=== PATIENT | female | born 1940 | race Caucasian/White ===

== ENCOUNTER 2019-06-27 01:44 | Inpatient (IN) | payer MEDICARE, OTHER ==
[~2019-06-27] VITALS: Ht 162.6 cm; Wt 125.6 kg
[2019-06-27] VITALS (14 sets, daily range): BP systolic 90–123; BP diastolic 48–99
[2019-06-27] MEDS ORDERED: IPRA3AMP31 IH (02:21)
[2019-06-27] MEDS ORDERED: PSYL1PAC9 PO (02:21)
[2019-06-27] MEDS ORDERED: DILT240C94 PO (02:21)
[2019-06-27] MEDS ORDERED: PANT-47 PO (02:21)
[2019-06-27] MEDS ORDERED: LACT1CAP55 PO (02:21)
[2019-06-27] MEDS ORDERED: EFF37.5XRC PO (02:21)
[2019-06-27] MEDS ORDERED: ATOR10TA87 PO (02:21)
[2019-06-27] MEDS ORDERED: MELA1TAB28 PO (02:21)
[2019-06-27] MEDS ORDERED: VANC250C12 PO (02:21)
[2019-06-27] MEDS ORDERED: normal saline 1000ml 1,000 ML IV ONE (04:04)
[2019-06-27] MEDS ORDERED: LIDOcaine 2% (20mg/ml) 5ml vial ONE (05:00)
[2019-06-27 05:04] LABS: BASOPHILS % (AUTO) 0.2 % (0-1); EOSINOPHILS % (AUTO) 0.4 % (0-6); HEMOGLOBIN 15.1 g/dl (12.0-16.0); LYMPHOCYTES # (AUTO) 0.2 X10'3 (1.1-4.8); LYMPHOCYTES % (AUTO) 2.1 % (21-51); MEAN CORPUSCULAR HEMOGLOBIN 28.6 PG (27.0-31.0); MEAN CORPUSCULAR HGB CONC 32.1 g/dL (33.0-36.5); MEAN CORPUSCULAR VOLUME 89.1 FL (78-98); MEAN PLATELET VOLUME 10.5 FL (7.4-10.4); MONOCYTES # (AUTO) 0.6 X10'3 (0-0.9); MONOCYTES % (AUTO) 6.5 % (2-12); NEUTROPHILS # (AUTO) 8.2 X10'3 (1.8-7.7); NEUTROPHILS % (AUTO) 90.8 % (42-75); PLATELET COUNT 141 X10'3 (140-440); RED BLOOD COUNT 5.27 X10'6 (4.20-5.60); RED CELL DISTRIBUTION WIDTH 17.3 % (11.5-14.5)
[2019-06-27 05:20] LABS: ALANINE AMINOTRANSFERASE 12 U/L (12-78); ALBUMIN 3.1 G/DL (3.4-5.0); ALKALINE PHOSPHATASE 94 IU/L (46-116); ANION GAP 7 (8-16); ASPARTATE AMINO TRANSFERASE 18 U/L (10-37); BILIRUBIN,TOTAL 0.6 MG/DL (0.1-1.0); BLOOD UREA NITROGEN 11 MG/DL (7-18); BUN/CREATININE RATIO 7.6 (6.6-38.0); CALCIUM 8.5 MG/DL (8.5-10.1); CHLORIDE 111 MMOL/L (99-107); CREATININE 1.44 MG/DL (0.40-0.90); GLUCOSE 115 MG/DL (70-104); LIPASE 55 U/L (73-393); POTASSIUM 4.4 MMOL/L (3.5-5.1); SODIUM 144 MMOL/L (135-145); TOTAL PROTEIN 6.3 G/DL (6.4-8.2); eGFR 35 ML/MIN
[2019-06-27] MEDS ORDERED: ondansetron/PF 4mg/2ml inj IV PRN (05:25)
[2019-06-27] MEDS ORDERED: mag hydrox/Alum hydrox/simeth 30ml oral suspension PO PRN (05:25)
[2019-06-27] MEDS ORDERED: morphine 2 MG/ML inj. syringe IV PRN ×2 (05:25)
[2019-06-27] MEDS ORDERED: acetaminophen 325mg tablet PO PRN ×2 (05:25)
[2019-06-27] MEDS ORDERED: magnesium hydroxide 30ml (MOM) UD suspension PO PRN (05:25)
--- NOTE | 2019-06-27 05:30 | NUR ---
PT HAD A LARGE FORMED SOFT BM . DR DONATO NOTIFIED OF BM
[2019-06-27] MEDS ORDERED: normal saline 1000ML IV soln IVB ONE (05:50)
--- NOTE | 2019-06-27 06:00 | NUR ---
chest x ray at bedside
[2019-06-27] MEDS: dextrose 5%-1/2 normal saline 1,000 ML IV SCH ×2 (06:03→15:24)
[2019-06-27] MEDS ORDERED: diltiazem-NS 100mg/100ml 100 ML IV SCH (06:05)
[2019-06-27] MEDS ORDERED: diltiazem-D5W 125mg/125ml 125 ML IV SCH (06:05)
[2019-06-27] MEDS ORDERED: diltiazem 5mg/ml 5ml inj. IV ONE (06:05)
[2019-06-27 06:10] LABS: PARTIAL THROMBOPLASTIN TIME 28 SECONDS (22-32)
--- NOTE | 2019-06-27 07:38 | NUR ---
NOTIFY DR DUKE THAT PT IS ON A CARDIZEM DRIP. ORDERS RECEIVED TO GIVE PT CARDIZEM 60MG PO Q 6HRS. AND ADD TELE TO THE ADMIT ORDER.
[2019-06-27] MEDS: diltiazem 30mg tablet PO SCH ×3 (07:49→19:53)
--- NOTE | 2019-06-27 08:00 | NUR ---
ORDERS PER DR RENTERIA IS TO STOP CARDIZEM DRIP AFTER GIVING THE PO CARDIZEM.
--- NOTE | 2019-06-27 09:32 | NUR ---
DR RENTERIA IN ROOM TO DISCUSS CODE STATUS DURING PT'S STAY. PT DECIDES TO BE A FULL CODE AND DR RENTERIA WILL BE CHANGING THAT.
[2019-06-27] MEDS ORDERED: Melatonin 3mg tablet PO PRN (09:40)
--- NOTE | 2019-06-27 09:40 | NUR ---
OR CALLED AND WILL BE HERE IN 10 MIN TO TRANSFER TO OR.
[2019-06-27] MEDS: lactobacillus rhamnosus 10,000 MMU CELLS/CAPSULE PO SCH ×2 (09:42→19:54)
--- NOTE | 2019-06-27 09:50 | NUR ---
PT TRANSPORTED TO OR VIA [facility] BY MS TECH.
[2019-06-27] MEDS ORDERED: LIDOcaine 1% (10mg/ml) 2ml vial ONE (10:22)
[2019-06-27] MEDS ORDERED: albuterol 2.5 MG/3 ML nebule NEB ONE ×2 (10:25→10:35)
[2019-06-27] MEDS ORDERED: albuterol 2.5 MG/3 ML nebule NEB PRN (10:25)
[2019-06-27] MEDS ORDERED: niCARDipine in NS 40mg/200ml (0.2mg/ml) IVPB IV ONE (11:22)
[2019-06-27] MEDS ORDERED: desflurane 240ml liquid inh. IH ONE (11:22)
[2019-06-27] MEDS ORDERED: fentaNYL /PF 50mcg/ml 5ml ampule ONE (11:34)
[2019-06-27] MEDS ORDERED: midazolam 2 mg/2 ml injection ONE (11:34)
[2019-06-27] MEDS ORDERED: LIDOcaine 1%/PF 5ML 10 MG/ML VIAL ONE (11:40)
[2019-06-27] MEDS ORDERED: etomidate 2mg/ml inj. ONE (11:47)
[2019-06-27] MEDS ORDERED: rocuronium 10mg/ml inj IV ONE ×2 (11:47→12:58)
[2019-06-27] MEDS: diltiazem-NS 100mg/100ml 100 ML IV SCH (11:55)
[2019-06-27] MEDS ORDERED: ceFOXitin 2 GM ADDVANTGE BAG 50 ML IV ONE (12:05)
[2019-06-27] MEDS: vancomycin 250MG/10ML UD oral solution 10ML BOTTLE PO SCH ×3 (13:00→21:00)
[2019-06-27] MEDS: ipratropium/albuterol 3ml nebule IH SCH ×3 (13:00→22:45)
[2019-06-27] MEDS ORDERED: propofol 1000mg/100ml bottle 100 ML IV SCH (13:14)
[2019-06-27] MEDS ORDERED: fentaNYL/PF 50MCG/1 ML 2ML syringe IV PRN (13:15)
[2019-06-27] MEDS ORDERED: FENTANYL-0.9 % NACL/PF 100 ML IV PRN (13:41)
[2019-06-27] MEDS ORDERED: midazolam 2 mg/2 ml injection IV ONE (13:45)
[2019-06-27] MEDS ORDERED: ipratropium/albuterol 3ml nebule NEB PRN (13:45)
--- NOTE | 2019-06-27 14:15 | NUR ---
Received from OR via , accompanied by Anesthesiologist DR URIBE and report given by Anesthesiolgist. PT IS SEDATED AND VENYILATED. DOES NOT RESPOND. VITALS STABLE. DRESSING DI. DOES NOT APPEAR TO BE IN DISCOMFORT.
[2019-06-27] MEDS: ipratropium/albuterol 3ml nebule NEB SCH ×2 (14:25→18:31)
[2019-06-27] MEDS: midazolam 100mg in NS 100ml 100 ML IV PRN (14:34)
[2019-06-27 14:55] LABS: ABG BASE EXCESS -8.4 mmol/L (-2.0-3.0); ABG HCO3 15.6 mmol/L (22.0-26.0); ABG OXYGEN SATURATION 98.7 % (95-98); ABG PCO2 (T) 28.8 mmHg (35.0-45.0); ABG PH (T) 7.352 (7.350-7.450); ABG PO2 (T) 147.8 mmHg (83-108); FCOHb 0.4 % (0.5-1.5); FMetHb 0.1 % (0.3-1.12); FO2Hb 98.2 % (94-100); PEEP 5 cm H2O; RESPIRATORY RATE 14 b/min; TIDAL VOLUME 550 mL; TOTAL HEMOGLOBIN 15.1 G/dl (12.0-16.0)
--- NOTE | 2019-06-27 14:55 | NUR ---
Report called to receiving nurse. Transferred via BED Belongings . Special Issues communicated to receiving nurse. PT REMAINS SEDATED AND ON MECH VENT. VITALS STABLE. DRESSINGS DI. NO APPARENT DISCOMFORT NOTED. IN CICU RM 2008 AT THIS TIME.
[2019-06-27] MEDS ORDERED: vancomycin/NS 1 GM ADD-VANTAGE 250 ML IV ONE (15:10)
--- NOTE | 2019-06-27 15:10 | NUR ---
Recived report from dealer account manager. VSS stable. assment ic completed.
[2019-06-27 16:16] LABS: BASOPHILS % (AUTO) 0.3 % (0-1); CLARITY,URINE TURBID (Clear); EOSINOPHILS % (AUTO) 0.1 % (0-6); GLUCOSE, URINE NEGATIVE (Neg); HEMATOCRIT 42.8 % (35.0-45.0); HEMOGLOBIN 13.8 g/dl (12.0-16.0); KETONES,URINE NEGATIVE (Neg); LEUKOCYTE ESTERASE ,URINE NEGATIVE (Neg); LYMPHOCYTES # (AUTO) 0.2 X10'3 (1.1-4.8); LYMPHOCYTES % (AUTO) 2.2 % (21-51); MEAN CORPUSCULAR HEMOGLOBIN 28.9 PG (27.0-31.0); MEAN CORPUSCULAR HGB CONC 32.1 g/dL (33.0-36.5); MEAN PLATELET VOLUME 10.7 FL (7.4-10.4); MONOCYTES # (AUTO) 0.6 X10'3 (0-0.9); MONOCYTES % (AUTO) 5.6 % (2-12); NEUTROPHILS # (AUTO) 9.3 X10'3 (1.8-7.7); NEUTROPHILS % (AUTO) 91.8 % (42-75); NITRITES, URINE NEGATIVE (Neg); OCCULT BLOOD,URINE SMALL (Neg); PH,URINE 5.5 (4.8-8.0); PLATELET COUNT 140 X10'3 (140-440); PROTEIN,URINE NEGATIVE (Neg); RED BLOOD COUNT 4.76 X10'6 (4.20-5.60); RED CELL DISTRIBUTION WIDTH 17.5 % (11.5-14.5); UROBILINOGEN,URINE 0.2 E.U/dL (0.2-1.0); WHITE BLOOD COUNT 10.1 X10'3 (4.5-11.0)
[2019-06-27 16:18] LABS: COLOR,URINE DARK YELLOW (Yellow); UA COLLECTION TYPE NON-SPECIFIED
[2019-06-27 16:23] LABS: AMORPHOUS URATES 3+; BACTERIA,URINE FEW /HPF (Neg); CAL OXALATE CRYSTALS 2+ /HPF (NEGATIVE); MUCUS STRANDS NONE SEEN /LPF (Neg); RBC,URINE NONE SEEN /HPF (0-2); SQUAMOUS EPITHELIAL CELL,UR FEW /LPF (FEW); WBC,URINE 0-4 /HPF (0-4)
[2019-06-27 16:29] LABS: ALANINE AMINOTRANSFERASE 12 U/L (12-78); ALBUMIN 2.8 G/DL (3.4-5.0); ALBUMIN/GLOBULIN RATIO 0.9 (1.1-1.5); ALKALINE PHOSPHATASE 84 IU/L (46-116); ANION GAP 12 (8-16); ASPARTATE AMINO TRANSFERASE 22 U/L (10-37); BILIRUBIN,TOTAL 1.3 MG/DL (0.1-1.0); BLOOD UREA NITROGEN 13 MG/DL (7-18); BUN/CREATININE RATIO 9.2 (6.6-38.0); CALCIUM 7.9 MG/DL (8.5-10.1); CHLORIDE 113 MMOL/L (99-107); CREATININE 1.41 MG/DL (0.40-0.90); GLUCOSE 172 MG/DL (70-104); MAGNESIUM 1.4 MG/DL (1.5-2.4); PHOSPHORUS 2.6 MG/DL (2.3-4.5); POTASSIUM 4.1 MMOL/L (3.5-5.1); SODIUM 143 MMOL/L (135-145); TOTAL CARBON DIOXIDE 17.9 MMOL/L (24-32); TOTAL PROTEIN 5.9 G/DL (6.4-8.2); eGFR 36 ML/MIN
[2019-06-27 16:46] LABS: TOTAL CELLS COUNTED 100
[2019-06-27 16:47] LABS: ANISOCYTOSIS 1+; LARGE PLATELETS FEW; PLATELET ESTIMATE NORMAL; TOXIC VACUOLATION 1+
[2019-06-27] MEDS: VANCOMYCIN 1gm/H2O 200ml PB 200 ML IV SCH (17:21)
[2019-06-27] MEDS: ceFOXitin sod/dextrose 2g/50ml 50 ML IV SCH (19:54)
[2019-06-27] MEDS: pantoprazole 40mg Tablet.DR PO SCH (19:54)
[2019-06-27] MEDS: atorvastatin 10mg tablet PO SCH (20:08)
[2019-06-28] VITALS (24 sets, daily range): BP systolic 92–127; BP diastolic 52–79
[2019-06-28] MEDS: diltiazem-NS 100mg/100ml 100 ML IV SCH (00:34)
[2019-06-28] MEDS: diltiazem 30mg tablet PO SCH ×4 (01:14→19:05)
[2019-06-28] MEDS: ceFOXitin sod/dextrose 2g/50ml 50 ML IV SCH ×4 (01:14→19:08)
[2019-06-28] MEDS: dextrose 5%-1/2 normal saline 1,000 ML IV SCH ×2 (01:24→12:19)
[2019-06-28] MEDS: ipratropium/albuterol 3ml nebule NEB SCH ×7 (02:12→22:56)
[2019-06-28 02:37] LABS: ALBUMIN 2.6 G/DL (3.4-5.0); ANION GAP 10 (8-16); BLOOD UREA NITROGEN 17 MG/DL (7-18); BUN/CREATININE RATIO 6.2 (6.6-38.0); CALCIUM 8.1 MG/DL (8.5-10.1); CHLORIDE 112 MMOL/L (99-107); CREATININE 2.75 MG/DL (0.40-0.90); GLUCOSE 157 MG/DL (70-104); POTASSIUM 4.2 MMOL/L (3.5-5.1); SODIUM 143 MMOL/L (135-145); TOTAL CARBON DIOXIDE 20.7 MMOL/L (24-32); eGFR 17 ML/MIN
[2019-06-28 02:45] LABS: BASOPHILS % (AUTO) 0.2 % (0-1); EOSINOPHILS % (AUTO) 0 % (0-6); HEMATOCRIT 44.4 % (35.0-45.0); HEMOGLOBIN 14.1 g/dl (12.0-16.0); LYMPHOCYTES # (AUTO) 0.2 X10'3 (1.1-4.8); LYMPHOCYTES % (AUTO) 2.1 % (21-51); MEAN CORPUSCULAR HEMOGLOBIN 28.5 PG (27.0-31.0); MEAN CORPUSCULAR HGB CONC 31.8 g/dL (33.0-36.5); MEAN CORPUSCULAR VOLUME 89.5 FL (78-98); MEAN PLATELET VOLUME 10.7 FL (7.4-10.4); MONOCYTES # (AUTO) 0.4 X10'3 (0-0.9); MONOCYTES % (AUTO) 3.7 % (2-12); NEUTROPHILS # (AUTO) 9.2 X10'3 (1.8-7.7); PLATELET COUNT 128 X10'3 (140-440); RED BLOOD COUNT 4.96 X10'6 (4.20-5.60); RED CELL DISTRIBUTION WIDTH 17.5 % (11.5-14.5); WHITE BLOOD COUNT 9.7 X10'3 (4.5-11.0)
[2019-06-28 03:56] LABS: ABG BASE EXCESS -8.7 mmol/L (-2.0-3.0); ABG HCO3 15.9 mmol/L (22.0-26.0); ABG OXYGEN SATURATION 91.8 % (95-98); ABG PCO2 (T) 30.7 mmHg (35.0-45.0); ABG PH (T) 7.331 (7.350-7.450); ABG PO2 (T) 61.5 mmHg (83-108); ALLEN'S TEST POSITIVE; FCOHb 0.1 % (0.5-1.5); FMetHb 0.2 % (0.3-1.12); FO2Hb 91.5 % (94-100); PATIENT TEMPERATURE 36.9; PEEP 5 cm H2O; RESPIRATORY RATE 14 b/min; TIDAL VOLUME 550 mL; TOTAL HEMOGLOBIN 14.8 G/dl (12.0-16.0)
[2019-06-28] MEDS ORDERED: midazolam 2 mg/2 ml injection ONE (04:07)
[2019-06-28] MEDS: venlafaxine XR 37.5mg cap (Q24H) PO SCH (08:00)
[2019-06-28] MEDS: psyllium seed 3.4 gm packet PO SCH (08:00)
[2019-06-28] MEDS: pantoprazole 40mg Tablet.DR PO SCH ×2 (08:00→19:04)
--- NOTE | 2019-06-28 08:30 | NUR ---
agree with charted assessment by student.
[2019-06-28] MEDS: lactobacillus rhamnosus 10,000 MMU CELLS/CAPSULE PO SCH ×2 (08:59→19:04)
[2019-06-28] MEDS: vancomycin 250MG/10ML UD oral solution 10ML BOTTLE PO SCH ×2 (08:59→13:07)
[2019-06-28 11:35] LABS: PHOS, URINE RANDOM 44.7 MG/DL
[2019-06-28] MEDS: ipratropium/albuterol 3ml nebule IH SCH (11:36)
--- NOTE | 2019-06-28 12:36 | NUR ---
Initial: Pt intubated s/p lysis of complex adhesions found to have entire intestines inside large hernia sac larger than football per MD. Alvaro GONZÁLES currently to suction w/ 115ml output from two cher drains per EMR. Surgeon not states hx obesity and current wt is pt stated at 64kg w/ BMI 24 but pt does appear somewhat larger framed. ELISA d/w RN regarding scaled wt this admit in order to determine adequate nutrition support recs. Scaled wt pending. No BM yet post-op. Will continue to monitor for nutrition support needs if prolonged intubation post-op. Recs below; to update pending scaled wt. Rec: 1. IF EN; Vital AF at 65ml/hr goal 2. IF EN; PALB Q /; daily wts 3. would benefit from opioid antagonist on opioids post-op per surgeon approval 4. upon extubation, advance diet as medically indicated to heart healthy Addendum: 06/28/19 at [address] Amended: Links added.
[2019-06-28] MEDS: heparin, porcine 5000 units/ml vial SQ SCH ×2 (13:09→19:05)
[2019-06-28] MEDS: mineral oil/petrolatum ophthal oint EACHEYE SCH ×2 (13:10→20:59)
--- NOTE | 2019-06-28 15:00 | NUR ---
dr Huntley is arawre of low urine output. Pt is slow to wake. all sedation was off from 0900.
[2019-06-28] MEDS: VANCOMYCIN 1gm/H2O 200ml PB 200 ML IV SCH (15:19)
[2019-06-28] MEDS ORDERED: glucagon, human recombinant 1mg kit SUBCUT PRN (17:40)
[2019-06-28] MEDS ORDERED: MESSAGE TO PHARMACY PO ONE (17:40)
[2019-06-28] MEDS ORDERED: dextrose 50%-water 50ml dispensing syringe IV PRN ×2 (17:40)
[2019-06-28] MEDS ORDERED: insulin Lispro (HumaLOG) vial - multi-dose SQ SCH (17:40)
[2019-06-28] MEDS: atorvastatin 10mg tablet PO SCH (19:04)
[2019-06-28] MEDS: insulin glargine (Lantus) pen - multi-dose SQ SCH (20:58)
[2019-06-28] MEDS: HYDROcodone/acetaminophen 5mg/325mg tablet PO PRN (21:30)
[2019-06-29] VITALS (29 sets, daily range): BP systolic 81–118; BP diastolic 50–77
[2019-06-29] MEDS: midazolam 100mg in NS 100ml 100 ML IV PRN (00:08)
[2019-06-29] MEDS: HYDROcodone/acetaminophen 10/325mg tab PO PRN (01:53)
[2019-06-29] MEDS: ceFOXitin sod/dextrose 2g/50ml 50 ML IV SCH ×4 (01:53→19:22)
[2019-06-29] MEDS: diltiazem 30mg tablet PO SCH ×5 (01:53→19:22)
[2019-06-29] MEDS: dextrose 5%-1/2 normal saline 1,000 ML IV SCH ×3 (02:30→17:46)
[2019-06-29] MEDS: mineral oil/petrolatum ophthal oint EACHEYE SCH ×4 (02:41→19:22)
[2019-06-29 02:43] LABS: BASOPHILS % (AUTO) 0.4 % (0-1); EOSINOPHILS % (AUTO) 0.1 % (0-6); HEMATOCRIT 39.4 % (35.0-45.0); HEMOGLOBIN 12.9 g/dl (12.0-16.0); LYMPHOCYTES # (AUTO) 0.3 X10'3 (1.1-4.8); LYMPHOCYTES % (AUTO) 2.6 % (21-51); MEAN CORPUSCULAR HEMOGLOBIN 29.2 PG (27.0-31.0); MEAN CORPUSCULAR HGB CONC 32.8 g/dL (33.0-36.5); MEAN PLATELET VOLUME 10.7 FL (7.4-10.4); NEUTROPHILS # (AUTO) 8.6 X10'3 (1.8-7.7); NEUTROPHILS % (AUTO) 86.9 % (42-75); PLATELET COUNT 122 X10'3 (140-440); RED BLOOD COUNT 4.42 X10'6 (4.20-5.60); RED CELL DISTRIBUTION WIDTH 17.1 % (11.5-14.5); WHITE BLOOD COUNT 9.9 X10'3 (4.5-11.0)
[2019-06-29 02:46] LABS: ALBUMIN 2.4 G/DL (3.4-5.0); ANION GAP 11 (8-16); BLOOD UREA NITROGEN 28 MG/DL (7-18); BUN/CREATININE RATIO 7.7 (6.6-38.0); CALCIUM 8.7 MG/DL (8.5-10.1); CHLORIDE 108 MMOL/L (99-107); CREATININE 3.64 MG/DL (0.40-0.90); GLUCOSE 163 MG/DL (70-104); POTASSIUM 3.8 MMOL/L (3.5-5.1); SODIUM 140 MMOL/L (135-145); TOTAL CARBON DIOXIDE 20.7 MMOL/L (24-32); eGFR 12 ML/MIN
[2019-06-29 03:10] LABS: MAGNESIUM 1.4 MG/DL (1.5-2.4); PHOSPHORUS 3.1 MG/DL (2.3-4.5)
[2019-06-29 03:25] LABS: PLATELET ESTIMATE DECREASED
[2019-06-29 03:27] LABS: LARGE PLATELETS MODERATE
[2019-06-29] MEDS: ipratropium/albuterol 3ml nebule NEB SCH ×6 (03:34→23:26)
[2019-06-29 04:11] LABS: ABG BASE EXCESS -7.4 mmol/L (-2.0-3.0); ABG HCO3 17.3 mmol/L (22.0-26.0); ABG OXYGEN SATURATION 93.2 % (95-98); ABG PCO2 (T) 32.1 mmHg (35.0-45.0); ABG PH (T) 7.347 (7.350-7.450); ABG PO2 (T) 65.3 mmHg (83-108); ALLEN'S TEST POSITIVE; FCOHb 0.3 % (0.5-1.5); FMetHb 0.3 % (0.3-1.12); FO2Hb 92.6 % (94-100); PATIENT TEMPERATURE 36.4; PEEP 5 cm H2O; TOTAL HEMOGLOBIN 13.4 G/dl (12.0-16.0)
[2019-06-29 06:37] LABS: HEMOGLOBIN A1C 6.3 % (4.5-6.2)
[2019-06-29] MEDS: pantoprazole 40mg Tablet.DR PO SCH (08:00)
[2019-06-29] MEDS: psyllium seed 3.4 gm packet PO SCH (08:00)
[2019-06-29] MEDS: venlafaxine XR 37.5mg cap (Q24H) PO SCH (08:00)
[2019-06-29] MEDS: vancomycin 250MG/10ML UD oral solution 10ML BOTTLE PO SCH ×5 (08:15→19:24)
[2019-06-29] MEDS: heparin, porcine 5000 units/ml vial SQ SCH ×2 (08:38→19:22)
[2019-06-29] MEDS: propofol 1000mg/100ml bottle 100 ML IV SCH (09:38)
--- NOTE | 2019-06-29 10:00 | NUR ---
[facility]: REF: [id number] LOT: [id number] EXP: 12/13/2019
[2019-06-29] MEDS ORDERED: desflurane 240ml liquid inh. IH ONE (11:57)
[2019-06-29] MEDS ORDERED: fentaNYL /PF 50mcg/ml 5ml ampule ONE (12:04)
--- NOTE | 2019-06-29 12:07 | NUR ---
patient off the unit to OR
[2019-06-29] MEDS ORDERED: rocuronium 10mg/ml inj IV ONE (12:09)
[2019-06-29] MEDS ORDERED: bacitracin 15gm ointment TP ONE (12:41)
[2019-06-29] MEDS ORDERED: ceFAZolin 1000mg inj ONE (12:46)
[2019-06-29] MEDS ORDERED: albumin (human) 25% 100 ML IV solution IV ONE (13:05)
[2019-06-29] MEDS ORDERED: furosemide 40mg/4ml inj IV ONE (13:05)
--- NOTE | 2019-06-29 13:09 | NUR ---
patient back from OR.
[2019-06-29] MEDS: VANCOMYCIN 1gm/H2O 200ml PB 200 ML IV SCH (16:11)
--- NOTE | 2019-06-29 16:45 | NUR ---
notified Dr. Huntley of patient's continued decreased urine output. after flushing granado; no new orders received.
--- NOTE | 2019-06-29 17:16 | NUR ---
TF Consult: Pt okay to start Trickle TF today per surgeon. LBM 06/25. Pt having PICC placed and may need HD per . Na 140 today. Trickle feed recs below; to adjust water flushes per shipping order clerk recs. Rec: 1. Trickle NGTF per surgeon using Vital AF at 10ml/hr goal; to provide 240ml fluid, 288kcals, 194ml free water, and 18g protein. 2. PALB Q ; daily wts 3. additional water flush per shipping order clerk recs 4. IF okay to advance EN per surgeon; Vital AF at 65ml/hr goal 5. would benefit from opioid antagonist on opioids post-op per surgeon approval 6. upon extubation, advance diet as medically indicated to heart healthy Addendum: 06/29/19 at [address] Amended: Links added.
[2019-06-29] MEDS: famotidine 20mg tablet PO SCH (19:22)
[2019-06-29] MEDS: atorvastatin 10mg tablet PO SCH (19:24)
[2019-06-29] MEDS: insulin glargine (Lantus) pen - multi-dose SQ SCH (21:00)
[2019-06-30] VITALS (24 sets, daily range): BP systolic 90–119; BP diastolic 50–70
[2019-06-30] MEDS ORDERED: albumin (Human) 5% 250ml 250 ML IV ONE ×2 (01:50→02:37)
[2019-06-30] MEDS: mineral oil/petrolatum ophthal oint EACHEYE SCH ×4 (02:00→20:10)
[2019-06-30] MEDS: ceFOXitin sod/dextrose 2g/50ml 50 ML IV SCH ×4 (02:00→20:10)
[2019-06-30] MEDS: diltiazem 30mg tablet PO SCH ×4 (02:00→20:00)
[2019-06-30 02:47] LABS: BASOPHILS # (AUTO) 0.1 X10'3 (0-0.2); BASOPHILS % (AUTO) 0.8 % (0-1); EOSINOPHILS % (AUTO) 0.1 % (0-6); HEMATOCRIT 33.7 % (35.0-45.0); LYMPHOCYTES # (AUTO) 0.2 X10'3 (1.1-4.8); LYMPHOCYTES % (AUTO) 3.1 % (21-51); MEAN CORPUSCULAR HEMOGLOBIN 29.3 PG (27.0-31.0); MEAN CORPUSCULAR HGB CONC 32.6 g/dL (33.0-36.5); MEAN PLATELET VOLUME 10.9 FL (7.4-10.4); MONOCYTES # (AUTO) 0.5 X10'3 (0-0.9); MONOCYTES % (AUTO) 7.6 % (2-12); NEUTROPHILS # (AUTO) 6.3 X10'3 (1.8-7.7); NEUTROPHILS % (AUTO) 88.4 % (42-75); PLATELET COUNT 100 X10'3 (140-440); RED BLOOD COUNT 3.75 X10'6 (4.20-5.60); RED CELL DISTRIBUTION WIDTH 17.7 % (11.5-14.5); WHITE BLOOD COUNT 7.1 X10'3 (4.5-11.0)
[2019-06-30 02:51] LABS: ALBUMIN 2.6 G/DL (3.4-5.0); ANION GAP 13 (8-16); BLOOD UREA NITROGEN 31 MG/DL (7-18); BUN/CREATININE RATIO 7.8 (6.6-38.0); CALCIUM 8.4 MG/DL (8.5-10.1); CHLORIDE 107 MMOL/L (99-107); GLUCOSE 104 MG/DL (70-104); POTASSIUM 3.5 MMOL/L (3.5-5.1); SODIUM 139 MMOL/L (135-145); eGFR 11 ML/MIN
[2019-06-30] MEDS: ipratropium/albuterol 3ml nebule NEB SCH ×6 (03:12→23:37)
[2019-06-30 03:25] LABS: ABG BASE EXCESS -8.9 mmol/L (-2.0-3.0); ABG HCO3 16.6 mmol/L (22.0-26.0); ABG OXYGEN SATURATION 93.6 % (95-98); ABG PH (T) 7.314 (7.350-7.450); ABG PO2 (T) 63.9 mmHg (83-108); ALLEN'S TEST POSITIVE; FCOHb 0.3 % (0.5-1.5); FMetHb 0.1 % (0.3-1.12); FO2Hb 93.2 % (94-100); PATIENT TEMPERATURE 36.2; PEEP 5 cm H2O; RESPIRATORY RATE 12 b/min; TIDAL VOLUME 500 mL; TOTAL HEMOGLOBIN 11.7 G/dl (12.0-16.0)
[2019-06-30] MEDS: dextrose 5%-1/2 normal saline 1,000 ML IV SCH (03:44)
[2019-06-30 03:57] LABS: TOTAL CELLS COUNTED 100
[2019-06-30 03:59] LABS: ANISOCYTOSIS 1+; LARGE PLATELETS MODERATE; PLATELET ESTIMATE DECREASED
[2019-06-30] MEDS ORDERED: vancomycin inj 1,000 MG in normal saline 250ml IV soln 250 ML IV SCH (06:21)
[2019-06-30 07:51] LABS: MAGNESIUM 1.3 MG/DL (1.5-2.4)
[2019-06-30] MEDS: lactobacillus rhamnosus 10,000 MMU CELLS/CAPSULE PO SCH (08:37)
[2019-06-30] MEDS: heparin, porcine 5000 units/ml vial SQ SCH ×2 (08:38→20:11)
[2019-06-30] MEDS: vancomycin 250MG/10ML UD oral solution 10ML BOTTLE PO SCH ×4 (08:38→20:10)
[2019-06-30] MEDS: famotidine 20mg tablet PO SCH ×2 (08:38→20:10)
[2019-06-30] MEDS: psyllium seed 3.4 gm packet PO SCH (08:38)
[2019-06-30] MEDS ORDERED: methylnaltrexone br 12mg/0.6ml inj***SubQ only SQ ONE (08:45)
[2019-06-30] MEDS: venlafaxine 37.5mg tablet PO SCH (14:06)
[2019-06-30] MEDS: normal saline 1000ml 1,000 ML IV SCH (14:10)
[2019-06-30] MEDS ORDERED: insulin regular, human U-100 3ml vial - multi-dose SQ SCH (15:10)
[2019-06-30] MEDS: vancomycin inj 750 MG in normal saline 250ml IV soln 250 ML IV SCH (15:26)
[2019-06-30] MEDS ORDERED: VANCOMYCIN LEVEL IV ONE (15:30)
--- NOTE | 2019-06-30 18:54 | NUR ---
Patient in room CICU 2008. I have received report from Merced ANDERSON, and had the opportunity to ask questions and assume patient care.
--- NOTE | 2019-06-30 20:00 | NUR ---
PT nodded head yes when asked if she was in pain. PT has PRN Bethany ordered, DIETARY AID Jeff informed d/t sedation being off, he gave the okay to give a Bethany. Will continue to monitor.
[2019-06-30] MEDS: NYSTATIN CREAM - 30GM TUBE TP SCH (20:10)
[2019-06-30] MEDS: atorvastatin 10mg tablet PO SCH (20:10)
[2019-06-30] MEDS: mineral oil/petrolatum, white cream 113gm jar TP SCH (20:11)
[2019-06-30] MEDS: HYDROcodone/acetaminophen 5mg/325mg tablet PO PRN (20:12)
[2019-06-30] MEDS: insulin glargine (Lantus) pen - multi-dose SQ SCH (21:00)
[2019-07-01] VITALS (24 sets, daily range): BP systolic 82–116; BP diastolic 48–71
[2019-07-01] MEDS: normal saline 1000ml 1,000 ML IV SCH ×2 (00:33→09:58)
[2019-07-01] MEDS: mineral oil/petrolatum ophthal oint EACHEYE SCH ×4 (02:32→21:23)
[2019-07-01] MEDS: diltiazem 30mg tablet PO SCH ×4 (02:32→20:00)
[2019-07-01] MEDS: ceFOXitin sod/dextrose 2g/50ml 50 ML IV SCH ×4 (02:32→21:22)
[2019-07-01 02:58] LABS: BASOPHILS % (AUTO) 0.2 % (0-1); EOSINOPHILS % (AUTO) 0.6 % (0-6); HEMATOCRIT 34.4 % (35.0-45.0); HEMOGLOBIN 11.3 g/dl (12.0-16.0); LYMPHOCYTES # (AUTO) 0.3 X10'3 (1.1-4.8); LYMPHOCYTES % (AUTO) 3.8 % (21-51); MEAN CORPUSCULAR HGB CONC 32.8 g/dL (33.0-36.5); MEAN CORPUSCULAR VOLUME 88.6 FL (78-98); MEAN PLATELET VOLUME 10.3 FL (7.4-10.4); MONOCYTES # (AUTO) 0.6 X10'3 (0-0.9); MONOCYTES % (AUTO) 8.1 % (2-12); NEUTROPHILS # (AUTO) 6.3 X10'3 (1.8-7.7); NEUTROPHILS % (AUTO) 87.3 % (42-75); PLATELET COUNT 105 X10'3 (140-440); RED BLOOD COUNT 3.89 X10'6 (4.20-5.60); RED CELL DISTRIBUTION WIDTH 17.6 % (11.5-14.5); WHITE BLOOD COUNT 7.2 X10'3 (4.5-11.0)
[2019-07-01] MEDS: ipratropium/albuterol 3ml nebule NEB SCH ×6 (03:07→23:26)
[2019-07-01 03:09] LABS: ALBUMIN 2.4 G/DL (3.4-5.0); ANION GAP 12 (8-16); BLOOD UREA NITROGEN 31 MG/DL (7-18); BUN/CREATININE RATIO 6.8 (6.6-38.0); CALCIUM 8.2 MG/DL (8.5-10.1); CHLORIDE 108 MMOL/L (99-107); CREATININE 4.56 MG/DL (0.40-0.90); GLUCOSE 83 MG/DL (70-104); POTASSIUM 3.4 MMOL/L (3.5-5.1); PREALBUMIN 11.7 MG/DL (19-36); SODIUM 139 MMOL/L (135-145); TOTAL CARBON DIOXIDE 19.5 MMOL/L (24-32); eGFR 9 ML/MIN
[2019-07-01 03:44] LABS: MAGNESIUM 1.2 MG/DL (1.5-2.4)
--- NOTE | 2019-07-01 03:45 | NUR ---
GABY Aguilar notified d/t PT Mag 1.2. Informed him PT's CRE is 4.56. Order received to give 2gm Mag. Will continue to monitor.
[2019-07-01 03:55] LABS: ABG BASE EXCESS -9.2 mmol/L (-2.0-3.0); ABG HCO3 15.8 mmol/L (22.0-26.0); ABG OXYGEN SATURATION 95.5 % (95-98); ABG PCO2 (T) 32.1 mmHg (35.0-45.0); ABG PH (T) 7.312 (7.350-7.450); ABG PO2 (T) 80.1 mmHg (83-108); ALLEN'S TEST POSITIVE; FCOHb 0.3 % (0.5-1.5); FMetHb 0.1 % (0.3-1.12); FO2Hb 95.1 % (94-100); PATIENT TEMPERATURE 37.2; PEEP 5 cm H2O; TOTAL HEMOGLOBIN 11.7 G/dl (12.0-16.0)
[2019-07-01] MEDS ORDERED: magnesium 2GM in 50ml NS 50 ML IV ONE (03:55)
--- NOTE | 2019-07-01 06:30 | NUR ---
Patient in room CICU 2008. I have received report from MONICA TOUSSAINT and had the opportunity to ask questions and assume patient care.
--- NOTE | 2019-07-01 06:45 | NUR ---
Problems reprioritized. Patient report given, questions answered & plan of care reviewed with Jacky ANDERSON.
[2019-07-01] MEDS: HYDROcodone/acetaminophen 10/325mg tab PO PRN (06:52)
[2019-07-01] MEDS: lactobacillus rhamnosus 10,000 MMU CELLS/CAPSULE PO SCH (08:26)
[2019-07-01] MEDS: famotidine 20mg tablet PO SCH ×2 (08:26→21:22)
[2019-07-01] MEDS: venlafaxine 37.5mg tablet PO SCH (08:26)
[2019-07-01] MEDS: vancomycin 250MG/10ML UD oral solution 10ML BOTTLE PO SCH ×4 (08:26→21:28)
[2019-07-01] MEDS: psyllium seed 3.4 gm packet PO SCH (08:27)
[2019-07-01] MEDS: NYSTATIN CREAM - 30GM TUBE TP SCH ×2 (08:28→21:23)
[2019-07-01] MEDS: mineral oil/petrolatum, white cream 113gm jar TP SCH ×2 (08:28→21:23)
[2019-07-01] MEDS: heparin, porcine 5000 units/ml vial SQ SCH ×2 (08:28→21:23)
[2019-07-01] MEDS: propofol 1000mg/100ml bottle 100 ML IV SCH (09:38)
--- NOTE | 2019-07-01 13:50 | NUR ---
dr Kyrie estrella at bedside, ok for pT, patient does not need abdominal binder. also ok to advance tube feeds, consult placed. also ok if relister is needed. patient only getting norce now, may not need.
[2019-07-01] MEDS ORDERED: amiodarone/D5 360MG/200ML BAG 200 ML IV SCH (14:55)
[2019-07-01] MEDS ORDERED: potassium Cl 20 mEq/100mL bag IV ONE (14:55)
--- NOTE | 2019-07-01 15:05 | NUR ---
TF Consult: Pt tolerating trickle TF at 10ml/hr and okay to advance as tolerated to goal per surgeon. Pt did have liquid BM today though exact volume unknown per RN; previously LBM 06/25. Pt now receiving norco last night and this AM. RD d/w RN regarding opioid antagonist which surgeon was agreeable to as long as continues to receive opioids. Pt may need HD per ingredient mixer at rounds. Updated bed scale wt 117kg up from 64kg pt stated wt and current bed scale is accurate per RN. Will monitor for TF tolerance and additional protein needs post-op. Rec: 1. NGTF per surgeon using Vital AF at 70ml/hr goal; to provide 1680ml fluid, 2016kcals, 1361ml free water, and 126g protein. Initiate at 30ml/hr since tolerating trickle TF at 10ml/hr prior and advance 20ml Q8 to goal as tolerated. 2. monitor for EN tolerance 3. PALB Q /; daily wts 4. additional water flush 150ml Q4 5. routine bowel care; would benefit from opioid antagonist on opioids post-op per surgeon approval 6. upon extubation, advance diet as medically indicated to heart healthy Addendum: 07/01/19 at [address] Amended: Links added.
[2019-07-01] MEDS: vancomycin inj 750 MG in normal saline 250ml IV soln 250 ML IV SCH (15:31)
[2019-07-01] MEDS: sodium bicarbonate (8.4%) inj. 75 MEQ in dextrose 5% water 500ml 500 ML IV SCH ×2 (15:56→21:28)
[2019-07-01] MEDS: amiodarone inj. 450 MG in dextrose 5%-water 241 ML IV SCH (17:50)
--- NOTE | 2019-07-01 18:30 | NUR ---
Patient in room CICU 2008. I have received report from Jacky ANDERSON, and had the opportunity to ask questions and assume patient care.
[2019-07-01] MEDS: insulin glargine (Lantus) pen - multi-dose SQ SCH (21:00)
[2019-07-01] MEDS: atorvastatin 10mg tablet PO SCH (21:22)
[2019-07-02] VITALS (24 sets, daily range): BP systolic 85–119; BP diastolic 42–73
[2019-07-02] MEDS: mineral oil/petrolatum ophthal oint EACHEYE SCH ×4 (02:47→21:18)
[2019-07-02] MEDS: ceFOXitin sod/dextrose 2g/50ml 50 ML IV SCH ×4 (02:47→21:20)
[2019-07-02] MEDS: amiodarone inj. 450 MG in dextrose 5%-water 241 ML IV SCH ×3 (02:47→17:55)
[2019-07-02] MEDS: ipratropium/albuterol 3ml nebule NEB SCH ×6 (03:10→22:39)
[2019-07-02 03:25] LABS: ANION GAP 11 (8-16); BLOOD UREA NITROGEN 33 MG/DL (7-18); BUN/CREATININE RATIO 6.5 (6.6-38.0); CHLORIDE 105 MMOL/L (99-107); CREATININE 5.08 MG/DL (0.40-0.90); GLUCOSE 142 MG/DL (70-104); POTASSIUM 3.4 MMOL/L (3.5-5.1); SODIUM 137 MMOL/L (135-145); TOTAL CARBON DIOXIDE 21.2 MMOL/L (24-32); eGFR 8 ML/MIN
[2019-07-02 03:29] LABS: BASOPHILS % (AUTO) 0.3 % (0-1); EOSINOPHILS # (AUTO) 0.1 X10'3 (0-0.9); EOSINOPHILS % (AUTO) 0.9 % (0-6); HEMATOCRIT 34.5 % (35.0-45.0); HEMOGLOBIN 11.3 g/dl (12.0-16.0); LYMPHOCYTES # (AUTO) 0.2 X10'3 (1.1-4.8); LYMPHOCYTES % (AUTO) 3.2 % (21-51); MEAN CORPUSCULAR HEMOGLOBIN 28.9 PG (27.0-31.0); MEAN CORPUSCULAR HGB CONC 32.7 g/dL (33.0-36.5); MEAN CORPUSCULAR VOLUME 88.4 FL (78-98); MEAN PLATELET VOLUME 10.6 FL (7.4-10.4); MONOCYTES # (AUTO) 0.6 X10'3 (0-0.9); MONOCYTES % (AUTO) 8.5 % (2-12); NEUTROPHILS # (AUTO) 5.8 X10'3 (1.8-7.7); NEUTROPHILS % (AUTO) 87.1 % (42-75); PLATELET COUNT 118 X10'3 (140-440); RED BLOOD COUNT 3.91 X10'6 (4.20-5.60); RED CELL DISTRIBUTION WIDTH 17.2 % (11.5-14.5); WHITE BLOOD COUNT 6.6 X10'3 (4.5-11.0)
[2019-07-02 04:09] LABS: NUCLEATED RED BLOOD CELLS 2 /100WBC (0-0); TOTAL CELLS COUNTED 100
[2019-07-02 04:10] LABS: ANISOCYTOSIS 1+; LARGE PLATELETS MANY; PLATELET ESTIMATE DECREASED; TOXIC GRANULATION 1+; TOXIC VACUOLATION 1+
[2019-07-02 04:29] LABS: MAGNESIUM 1.6 MG/DL (1.5-2.4); PHOSPHORUS 3.1 MG/DL (2.3-4.5)
[2019-07-02] MEDS: sodium bicarbonate (8.4%) inj. 75 MEQ in dextrose 5% water 500ml 500 ML IV SCH ×4 (04:34→23:51)
[2019-07-02 05:21] LABS: ABG BASE EXCESS -8.1 mmol/L (-2.0-3.0); ABG HCO3 17.4 mmol/L (22.0-26.0); ABG OXYGEN SATURATION 96.5 % (95-98); ABG PCO2 (T) 35.8 mmHg (35.0-45.0); ABG PH (T) 7.305 (7.350-7.450); ABG PO2 (T) 84.8 mmHg (83-108); ALLEN'S TEST POSITIVE; FCOHb 0.3 % (0.5-1.5); FMetHb 0.3 % (0.3-1.12); FO2Hb 95.9 % (94-100); PATIENT TEMPERATURE 36.8; PEEP 5 cm H2O; TOTAL HEMOGLOBIN 12.1 G/dl (12.0-16.0)
--- NOTE | 2019-07-02 06:30 | NUR ---
Patient in room CICU 2008. I have received report from MONICA Boyd and had the opportunity to ask questions and assume patient care.
--- NOTE | 2019-07-02 06:54 | NUR ---
Problems reprioritized. Patient report given, questions answered & plan of care reviewed with Kelin ANDERSON.
[2019-07-02] MEDS: vancomycin 250MG/10ML UD oral solution 10ML BOTTLE PO SCH ×3 (07:51→17:00)
[2019-07-02] MEDS: famotidine 20mg tablet PO SCH ×2 (07:51→21:19)
[2019-07-02] MEDS: heparin, porcine 5000 units/ml vial SQ SCH ×2 (07:51→21:20)
[2019-07-02] MEDS: psyllium seed 3.4 gm packet PO SCH (07:51)
[2019-07-02] MEDS: venlafaxine 37.5mg tablet PO SCH (07:51)
[2019-07-02] MEDS: lactobacillus rhamnosus 10,000 MMU CELLS/CAPSULE PO SCH (07:51)
[2019-07-02] MEDS: NYSTATIN CREAM - 30GM TUBE TP SCH ×2 (07:52→21:18)
[2019-07-02] MEDS: mineral oil/petrolatum, white cream 113gm jar TP SCH ×2 (07:52→21:19)
[2019-07-02] MEDS: diltiazem 30mg tablet PO SCH ×2 (08:00→21:19)
--- NOTE | 2019-07-02 10:45 | NUR ---
Critical care rounds: Discussed patient status in detail with multidisciplinary team. Creatinine increasing significantly, 24 hr creatinine urine clearance begun, plan for dialysis today or tomorrow and MD requests set up for temp HD catheter. Also discussed increased fatigue, increased HR and puffy extremities, requested decrease in IVF and reported CO2 serum decreasing. Free water to be stopped and bicarb to be lowered in rate. Discussed need for starting cardizem but at a lowered dose because BP has been borderline. Also reported myself and RT did not feel she was strong as yesterday on weaning parameters, no plan to extubate today.
[2019-07-02] MEDS ORDERED: fentaNYL/PF 50MCG/1 ML 2ML syringe IV ONE ×2 (10:50→12:00)
[2019-07-02] MEDS ORDERED: MIDAZolam 5mg/ml 2ml vial IV ONE ×2 (10:50)
--- NOTE | 2019-07-02 12:03 | NUR ---
Assisted MD with placing temporary dialysis catheter, procedure completed without incident. VS remained stable throughout. Will continue to monitor closely.
[2019-07-02] MEDS ORDERED: normal saline 1000ml 250 ML IV PRN (12:44)
[2019-07-02] MEDS ORDERED: albumin (human) 25% 100ml IV 100 ML IV PRN (12:45)
[2019-07-02] MEDS ORDERED: heparin 1,000 units/ml 10ml inj HE ONE ×4 (12:50→13:40)
[2019-07-02] MEDS: HYDROcodone/acetaminophen 10/325mg tab PO PRN (13:54)
--- NOTE | 2019-07-02 14:45 | NUR ---
Changed abdominal dressing and applied Rodarte straps to decrease amount of times tape is applied and reapplied. Wound clean but still secreting a lot of serous fluid.
--- NOTE | 2019-07-02 14:52 | NUR ---
F/U 07/01: MD at critical care rounds requests decrease in water flushes d/t pt being fluid positive. Recommend 100 mL water flush Q4H to meet minimum hydration needs using 1 mL/kcal. Recommendations d/w RN. Pt starting dialysis today per MD notes. Will continue to follow. TF Consult: Pt tolerating trickle TF at 10ml/hr and okay to advance as tolerated to goal per surgeon. Pt did have liquid BM today though exact volume unknown per RN; previously LBM 06/25. Pt now receiving norco last night and this AM. RD d/w RN regarding opioid antagonist which surgeon was agreeable to as long as continues to receive opioids. Pt may need HD per softball coach at rounds. Updated bed scale wt 117kg up from 64kg pt stated wt and current bed scale is accurate per RN. Will monitor for TF tolerance and additional protein needs post-op. Rec: 1. NGTF per surgeon using Vital AF at 70ml/hr goal; to provide 1680ml fluid, 2016kcals, 1361ml free water, and 126g protein. Initiate at 30ml/hr since tolerating trickle TF at 10ml/hr prior and advance 20ml Q8 to goal as tolerated. 2. monitor for EN tolerance 3. PALB Q /; daily wts 4. additional water flush 100 mL Q4H 5. routine bowel care; would benefit from opioid antagonist on opioids post-op per surgeon approval 6. upon extubation, advance diet as medically indicated to heart healthy Addendum: 07/02/19 at [address] Amended: Links added.
--- NOTE | 2019-07-02 16:15 | NUR ---
Reviewed trending down BP and trending up HR and that patient seems to be slightly more fatigued. Received orders for albumin to give during dialysis.
[2019-07-02] MEDS ORDERED: albumin (human) 25% 100 ML IV solution IV ONE (16:50)
[2019-07-02] MEDS: vancomycin inj 750 MG in normal saline 250ml IV soln 250 ML IV SCH (18:11)
--- NOTE | 2019-07-02 18:25 | NUR ---
Problems reprioritized. Patient report given, questions answered & plan of care reviewed with MONICA Navarrete.
--- NOTE | 2019-07-02 18:30 | NUR ---
Patient in room CICU 2008. I have received report from Lianet ANDERSON, and had the opportunity to ask questions and assume patient care.
[2019-07-02] MEDS: insulin glargine (Lantus) pen - multi-dose SQ SCH (21:00)
[2019-07-02] MEDS: atorvastatin 10mg tablet PO SCH (21:19)
[2019-07-03] VITALS (23 sets, daily range): BP systolic 82–107; BP diastolic 43–74
[2019-07-03] MEDS: amiodarone inj. 450 MG in dextrose 5%-water 241 ML IV SCH ×4 (00:01→22:14)
[2019-07-03] MEDS: ceFOXitin sod/dextrose 2g/50ml 50 ML IV SCH ×4 (02:30→19:29)
[2019-07-03] MEDS: mineral oil/petrolatum ophthal oint EACHEYE SCH ×4 (02:30→19:30)
[2019-07-03 02:50] LABS: BASOPHILS % (AUTO) 0.2 % (0-1); EOSINOPHILS # (AUTO) 0.1 X10'3 (0-0.9); EOSINOPHILS % (AUTO) 1.3 % (0-6); HEMATOCRIT 30.7 % (35.0-45.0); HEMOGLOBIN 10.2 g/dl (12.0-16.0); LYMPHOCYTES # (AUTO) 0.2 X10'3 (1.1-4.8); LYMPHOCYTES % (AUTO) 3.4 % (21-51); MEAN CORPUSCULAR HEMOGLOBIN 28.9 PG (27.0-31.0); MEAN CORPUSCULAR HGB CONC 33.3 g/dL (33.0-36.5); MEAN CORPUSCULAR VOLUME 86.7 FL (78-98); MEAN PLATELET VOLUME 10.1 FL (7.4-10.4); MONOCYTES # (AUTO) 0.8 X10'3 (0-0.9); MONOCYTES % (AUTO) 11.8 % (2-12); NEUTROPHILS # (AUTO) 5.9 X10'3 (1.8-7.7); NEUTROPHILS % (AUTO) 83.3 % (42-75); PLATELET COUNT 96 X10'3 (140-440); RED BLOOD COUNT 3.55 X10'6 (4.20-5.60); RED CELL DISTRIBUTION WIDTH 17.2 % (11.5-14.5)
[2019-07-03 03:14] LABS: ALANINE AMINOTRANSFERASE 7 U/L (12-78); ALBUMIN 2.3 G/DL (3.4-5.0); ALBUMIN/GLOBULIN RATIO 0.9 (1.1-1.5); ALKALINE PHOSPHATASE 62 IU/L (46-116); ANION GAP 8 (8-16); ASPARTATE AMINO TRANSFERASE 12 U/L (10-37); BILIRUBIN,TOTAL 0.6 MG/DL (0.1-1.0); BLOOD UREA NITROGEN 25 MG/DL (7-18); BUN/CREATININE RATIO 5.9 (6.6-38.0); CHLORIDE 104 MMOL/L (99-107); CREATININE 4.22 MG/DL (0.40-0.90); GLUCOSE 136 MG/DL (70-104); MAGNESIUM 1.5 MG/DL (1.5-2.4); PHOSPHORUS 1.7 MG/DL (2.3-4.5); POTASSIUM 3.5 MMOL/L (3.5-5.1); SODIUM 137 MMOL/L (135-145); TOTAL CARBON DIOXIDE 24.9 MMOL/L (24-32); TOTAL PROTEIN 4.8 G/DL (6.4-8.2); eGFR 10 ML/MIN
[2019-07-03] MEDS: ipratropium/albuterol 3ml nebule NEB SCH ×6 (03:18→23:03)
[2019-07-03 04:36] LABS: ABG BASE EXCESS -0.9 mmol/L (-2.0-3.0); ABG HCO3 23.2 mmol/L (22.0-26.0); ABG OXYGEN SATURATION 95.6 % (95-98); ABG PCO2 (T) 37.1 mmHg (35.0-45.0); ABG PH (T) 7.415 (7.350-7.450); ABG PO2 (T) 77.1 mmHg (83-108); ALLEN'S TEST POSITIVE; FCOHb 0.1 % (0.5-1.5); FMetHb 0.2 % (0.3-1.12); FO2Hb 95.3 % (94-100); PATIENT TEMPERATURE 37.4; PEEP 5 cm H2O; RESPIRATORY RATE 12 b/min; TIDAL VOLUME 500 mL; TOTAL HEMOGLOBIN 11.2 G/dl (12.0-16.0)
--- NOTE | 2019-07-03 06:15 | NUR ---
Patient in room CICU 2008. I have received report from maintenance technician 2nd shift and had the opportunity to ask questions and assume patient care.
--- NOTE | 2019-07-03 06:51 | NUR ---
Problems reprioritized. Patient report given, questions answered & plan of care reviewed with Kelin ANDERSON.
[2019-07-03] MEDS ORDERED: normal saline 1000ml 250 ML IV PRN (08:00)
[2019-07-03] MEDS ORDERED: normal saline 1000ml 100 ML IV PRN (08:00)
[2019-07-03] MEDS ORDERED: epoetin 20,000 units/ml inj IV ONE (08:00)
[2019-07-03] MEDS ORDERED: heparin 1,000 units/ml 10ml inj HE ONE ×2 (08:00)
[2019-07-03] MEDS ORDERED: albumin (human) 25% 100ml IV 100 ML IV PRN (08:00)
[2019-07-03] MEDS: heparin, porcine 5000 units/ml vial SQ SCH ×2 (08:53→19:29)
[2019-07-03] MEDS: famotidine 20mg tablet PO SCH ×2 (08:53→19:29)
[2019-07-03] MEDS: diltiazem 30mg tablet PO SCH ×2 (08:53→19:29)
[2019-07-03] MEDS: psyllium seed 3.4 gm packet PO SCH (08:53)
[2019-07-03] MEDS: venlafaxine 37.5mg tablet PO SCH (08:53)
[2019-07-03] MEDS: lactobacillus rhamnosus 10,000 MMU CELLS/CAPSULE PO SCH (08:53)
[2019-07-03] MEDS: mineral oil/petrolatum, white cream 113gm jar TP SCH ×2 (09:12→19:30)
[2019-07-03] MEDS: NYSTATIN CREAM - 30GM TUBE TP SCH ×2 (09:12→19:30)
[2019-07-03] MEDS ORDERED: VANCOMYCIN LEVEL IV ONE (15:30)
[2019-07-03] MEDS: vancomycin inj 750 MG in normal saline 250ml IV soln 250 ML IV SCH (16:35)
--- NOTE | 2019-07-03 18:09 | NUR ---
Problems reprioritized. Patient report given, questions answered & plan of care reviewed with oncoming shift.
[2019-07-03] MEDS: HYDROcodone/acetaminophen 10/325mg tab PO PRN (19:30)
[2019-07-03] MEDS: atorvastatin 10mg tablet PO SCH (19:30)
[2019-07-03] MEDS: insulin glargine (Lantus) pen - multi-dose SQ SCH (21:00)
[2019-07-03] MEDS ORDERED: magnesium 2GM in 50ml NS 50 ML IV ONE (21:50)
[2019-07-03 21:53] LABS: BASOPHILS % (AUTO) 0.2 % (0-1); EOSINOPHILS # (AUTO) 0.1 X10'3 (0-0.9); EOSINOPHILS % (AUTO) 1.1 % (0-6); HEMATOCRIT 30.6 % (35.0-45.0); HEMOGLOBIN 10.3 g/dl (12.0-16.0); LYMPHOCYTES # (AUTO) 0.3 X10'3 (1.1-4.8); LYMPHOCYTES % (AUTO) 3.4 % (21-51); MEAN CORPUSCULAR HEMOGLOBIN 29.3 PG (27.0-31.0); MEAN CORPUSCULAR HGB CONC 33.6 g/dL (33.0-36.5); MEAN CORPUSCULAR VOLUME 87.1 FL (78-98); MEAN PLATELET VOLUME 10.1 FL (7.4-10.4); MONOCYTES % (AUTO) 12.7 % (2-12); NEUTROPHILS # (AUTO) 6.5 X10'3 (1.8-7.7); NEUTROPHILS % (AUTO) 82.6 % (42-75); PLATELET COUNT 94 X10'3 (140-440); RED BLOOD COUNT 3.51 X10'6 (4.20-5.60); RED CELL DISTRIBUTION WIDTH 17.6 % (11.5-14.5); WHITE BLOOD COUNT 7.9 X10'3 (4.5-11.0)
[2019-07-03] MEDS ORDERED: potassium Cl 20mEq/100mL bag 100 ML IV PRN (21:55)
[2019-07-03] MEDS ORDERED: magnesium 2GM in 50ml NS 50 ML IV PRN (21:55)
[2019-07-03] MEDS ORDERED: potassium Cl 20 mEq SR tablet PO PRN (21:55)
[2019-07-03 22:02] LABS: ALANINE AMINOTRANSFERASE 13 U/L (12-78); ALBUMIN 2.9 G/DL (3.4-5.0); ALBUMIN/GLOBULIN RATIO 1.2 (1.1-1.5); ALKALINE PHOSPHATASE 69 IU/L (46-116); ANION GAP 7 (8-16); ASPARTATE AMINO TRANSFERASE 18 U/L (10-37); BILIRUBIN,TOTAL 0.8 MG/DL (0.1-1.0); BLOOD UREA NITROGEN 14 MG/DL (7-18); BUN/CREATININE RATIO 4.1 (6.6-38.0); CHLORIDE 103 MMOL/L (99-107); CREATININE 3.38 MG/DL (0.40-0.90); GLUCOSE 134 MG/DL (70-104); MAGNESIUM 1.5 MG/DL (1.5-2.4); POTASSIUM 3.5 MMOL/L (3.5-5.1); SODIUM 138 MMOL/L (135-145); TOTAL CARBON DIOXIDE 27.8 MMOL/L (24-32); TOTAL PROTEIN 5.4 G/DL (6.4-8.2); eGFR 13 ML/MIN
[2019-07-04] VITALS (23 sets, daily range): BP systolic 90–113; BP diastolic 52–78
[2019-07-04] MEDS: mineral oil/petrolatum ophthal oint EACHEYE SCH ×4 (02:00→20:34)
[2019-07-04] MEDS: ipratropium/albuterol 3ml nebule NEB SCH ×6 (03:12→23:05)
[2019-07-04] MEDS: ceFOXitin sod/dextrose 2g/50ml 50 ML IV SCH ×4 (03:18→20:24)
[2019-07-04 03:32] LABS: PARTIAL THROMBOPLASTIN TIME 38 SECONDS (22-32)
[2019-07-04 03:45] LABS: ABG BASE EXCESS 0.8 mmol/L (-2.0-3.0); ABG HCO3 24.9 mmol/L (22.0-26.0); ABG OXYGEN SATURATION 94.8 % (95-98); ABG PCO2 (T) 38.4 mmHg (35.0-45.0); ABG PH (T) 7.432 (7.350-7.450); ABG PO2 (T) 71.6 mmHg (83-108); ALLEN'S TEST POSITIVE; FCOHb 0.1 % (0.5-1.5); FMetHb 0.1 % (0.3-1.12); FO2Hb 94.6 % (94-100); PATIENT TEMPERATURE 37.3; PEEP 5 cm H2O; RESPIRATORY RATE 12 b/min; TIDAL VOLUME 500 mL; TOTAL HEMOGLOBIN 10.6 G/dl (12.0-16.0)
[2019-07-04 03:46] LABS: ALANINE AMINOTRANSFERASE 12 U/L (12-78); ALBUMIN 2.6 G/DL (3.4-5.0); ALKALINE PHOSPHATASE 68 IU/L (46-116); ANION GAP 4 (8-16); ASPARTATE AMINO TRANSFERASE 18 U/L (10-37); BILIRUBIN,TOTAL 0.6 MG/DL (0.1-1.0); BLOOD UREA NITROGEN 19 MG/DL (7-18); BUN/CREATININE RATIO 5.1 (6.6-38.0); CALCIUM 8.3 MG/DL (8.5-10.1); CHLORIDE 103 MMOL/L (99-107); CREATININE 3.76 MG/DL (0.40-0.90); GLUCOSE 127 MG/DL (70-104); MAGNESIUM 1.8 MG/DL (1.5-2.4); POTASSIUM 3.5 MMOL/L (3.5-5.1); SODIUM 138 MMOL/L (135-145); TOTAL CARBON DIOXIDE 30.8 MMOL/L (24-32); TOTAL PROTEIN 5.2 G/DL (6.4-8.2); eGFR 12 ML/MIN
[2019-07-04 03:48] LABS: PHOSPHORUS 1.1 MG/DL (2.3-4.5)
--- NOTE | 2019-07-04 04:42 | NUR ---
1830..Patient in room CICU 2008. I have received report from Louis ANDERSON and had the opportunity to ask questions and assume patient care.
--- NOTE | 2019-07-04 04:43 | NUR ---
1999..Assessment as noted dialysis complete, tolerated well.
--- NOTE | 2019-07-04 04:44 | NUR ---
2100..Having runs of torsades, given Mg 2gm as ordered with good effect. medicated for pain with norco with good effect. Dsg to abd changes, sutures intact.
--- NOTE | 2019-07-04 05:15 | NUR ---
0000..Resting quietly, no changes noted.
--- NOTE | 2019-07-04 05:16 | NUR ---
0400..No changes noted.
[2019-07-04] MEDS ORDERED: Neutra Phos packet PO PRN (05:25)
[2019-07-04] MEDS ORDERED: sodium phosphate inj. 30 MMOL in dextrose 5%-water 250 ML IV PRN (05:25)
[2019-07-04] MEDS ORDERED: sodium phosphate inj. 15 MMOL in dextrose 5%-water 250 ML IV PRN (05:25)
[2019-07-04] MEDS: amiodarone inj. 450 MG in dextrose 5%-water 241 ML IV SCH ×3 (06:21→20:56)
--- NOTE | 2019-07-04 06:30 | NUR ---
received patient report from Irma ANDERSON
--- NOTE | 2019-07-04 06:47 | NUR ---
0645..Problems reprioritized. Patient report given, questions answered & plan of care reviewed with Marco A ANDERSON.
[2019-07-04] MEDS: lactobacillus rhamnosus 10,000 MMU CELLS/CAPSULE PO SCH (07:59)
[2019-07-04] MEDS: diltiazem 30mg tablet PO SCH ×2 (07:59→20:24)
[2019-07-04] MEDS: famotidine 20mg tablet PO SCH ×2 (07:59→20:24)
[2019-07-04] MEDS: venlafaxine 37.5mg tablet PO SCH (07:59)
[2019-07-04] MEDS: psyllium seed 3.4 gm packet PO SCH (08:00)
[2019-07-04] MEDS: mineral oil/petrolatum, white cream 113gm jar TP SCH ×2 (08:00→20:34)
[2019-07-04] MEDS: heparin, porcine 5000 units/ml vial SQ SCH ×2 (08:03→20:25)
[2019-07-04] MEDS: NYSTATIN CREAM - 30GM TUBE TP SCH ×2 (08:04→20:26)
[2019-07-04] MEDS ORDERED: albumin (human) 25% 100ml IV 100 ML IV PRN (10:05)
[2019-07-04] MEDS ORDERED: epoetin 20,000 units/ml inj IV ONE (10:05)
[2019-07-04] MEDS ORDERED: heparin 1,000 units/ml 10ml inj HE ONE ×2 (10:05)
[2019-07-04] MEDS ORDERED: VANCOMYCIN 1,500MG inj. 1,500 MG in normal saline 500ml IV soln 500 ML IV PRN (12:30)
--- NOTE | 2019-07-04 13:00 | NUR ---
Patient has continued to have short runs of torsades despite mag being 1.5, requested from Dr. Huntley if I can keep the patients mag above 2 to help with this problem and he said that was fine. I have given 2 g mag IVP and then a 4g bag will be given for a total of 6g and redraw will be done after the last dose.
[2019-07-04 13:25] LABS: ALANINE AMINOTRANSFERASE 11 U/L (12-78); ALBUMIN 2.1 G/DL (3.4-5.0); ALBUMIN/GLOBULIN RATIO 0.8 (1.1-1.5); ALKALINE PHOSPHATASE 75 IU/L (46-116); ANION GAP 8 (8-16); ASPARTATE AMINO TRANSFERASE 21 U/L (10-37); BILIRUBIN,TOTAL 0.5 MG/DL (0.1-1.0); BLOOD UREA NITROGEN 20 MG/DL (7-18); BUN/CREATININE RATIO 5.6 (6.6-38.0); CALCIUM 7.3 MG/DL (8.5-10.1); CHLORIDE 105 MMOL/L (99-107); GLUCOSE 120 MG/DL (70-104); MAGNESIUM 1.5 MG/DL (1.5-2.4); PHOSPHORUS 2.5 MG/DL (2.3-4.5); POTASSIUM 3.1 MMOL/L (3.5-5.1); SODIUM 139 MMOL/L (135-145); TOTAL CARBON DIOXIDE 25.6 MMOL/L (24-32); TOTAL PROTEIN 4.8 G/DL (6.4-8.2); eGFR 12 ML/MIN
[2019-07-04] MEDS ORDERED: magnesium 4gm in 100ml NS 100 ML IV PRN (14:55)
[2019-07-04] MEDS ORDERED: magnesium 2GM in 50ml NS 50 ML IV PRN (14:55)
--- NOTE | 2019-07-04 15:00 | NUR ---
patients dressing on abd changed and gown changed. CDI.
[2019-07-04] MEDS: amiodarone 200mg tablet PO SCH ×2 (15:12→20:24)
[2019-07-04] MEDS ORDERED: potassium Cl 20 mEq SR tablet PO PRN ×2 (15:20)
[2019-07-04] MEDS: magnesium 4gm in 100ml NS 100 ML IV PRN (17:05)
[2019-07-04 20:00] LABS: ALBUMIN 2.4 G/DL (3.4-5.0); ANION GAP 6 (8-16); BLOOD UREA NITROGEN 27 MG/DL (7-18); BUN/CREATININE RATIO 6.2 (6.6-38.0); CALCIUM 8.4 MG/DL (8.5-10.1); CHLORIDE 101 MMOL/L (99-107); CREATININE 4.36 MG/DL (0.40-0.90); GLUCOSE 136 MG/DL (70-104); MAGNESIUM 2.6 MG/DL (1.5-2.4); PHOSPHORUS 2.3 MG/DL (2.3-4.5); POTASSIUM 3.3 MMOL/L (3.5-5.1); SODIUM 134 MMOL/L (135-145); TOTAL CARBON DIOXIDE 27.5 MMOL/L (24-32); eGFR 10 ML/MIN
[2019-07-04] MEDS: HYDROcodone/acetaminophen 10/325mg tab PO PRN (20:24)
[2019-07-04] MEDS: insulin glargine (Lantus) pen - multi-dose SQ SCH (20:43)
[2019-07-04] MEDS: atorvastatin 10mg tablet PO SCH (20:43)
[2019-07-04] MEDS: dexmedetomidin/NS 400mcg/100ml 100 ML IV SCH (21:35)
[2019-07-05] VITALS (24 sets, daily range): BP systolic 82–110; BP diastolic 45–68
[2019-07-05] MEDS: ceFOXitin sod/dextrose 2g/50ml 50 ML IV SCH ×4 (02:20→20:46)
[2019-07-05] MEDS: mineral oil/petrolatum ophthal oint EACHEYE SCH ×4 (02:20→20:49)
[2019-07-05] MEDS: VANCOMYCIN LEVEL IV SCH (02:21)
[2019-07-05] MEDS: ipratropium/albuterol 3ml nebule NEB SCH ×6 (03:12→22:56)
[2019-07-05] MEDS: HYDROcodone/acetaminophen 10/325mg tab PO PRN (03:28)
[2019-07-05] MEDS: amiodarone inj. 450 MG in dextrose 5%-water 241 ML IV SCH ×2 (03:29→11:35)
[2019-07-05 03:31] LABS: ALANINE AMINOTRANSFERASE 17 U/L (12-78); ALBUMIN/GLOBULIN RATIO 0.7 (1.1-1.5); ALKALINE PHOSPHATASE 88 IU/L (46-116); ANION GAP 11 (8-16); ASPARTATE AMINO TRANSFERASE 25 U/L (10-37); BILIRUBIN,TOTAL 0.4 MG/DL (0.1-1.0); BLOOD UREA NITROGEN 26 MG/DL (7-18); CHLORIDE 99 MMOL/L (99-107); CREATININE 8.58 MG/DL (0.40-0.90); GLUCOSE 156 MG/DL (70-104); MAGNESIUM 2.6 MG/DL (1.5-2.4); POTASSIUM 3.3 MMOL/L (3.5-5.1); PREALBUMIN 14.7 MG/DL (19-36); SODIUM 136 MMOL/L (135-145); TOTAL CARBON DIOXIDE 26.5 MMOL/L (24-32); TOTAL PROTEIN 4.9 G/DL (6.4-8.2); eGFR 4 ML/MIN
--- NOTE | 2019-07-05 03:45 | NUR ---
full bed and bath. patient did well. i premedicated for the lengthy turn. large loose brown stool, liquid pasty. when removing the pacer pads, thought i gently removed the pads, caused a skin tear to left posterior back.
[2019-07-05 03:47] LABS: BASOPHILS % (AUTO) 0.3 % (0-1); EOSINOPHILS # (AUTO) 0.2 X10'3 (0-0.9); EOSINOPHILS % (AUTO) 2.1 % (0-6); HEMOGLOBIN 10.2 g/dl (12.0-16.0); LYMPHOCYTES # (AUTO) 0.3 X10'3 (1.1-4.8); LYMPHOCYTES % (AUTO) 4.3 % (21-51); MEAN CORPUSCULAR HEMOGLOBIN 28.7 PG (27.0-31.0); MEAN CORPUSCULAR HGB CONC 32.9 g/dL (33.0-36.5); MEAN CORPUSCULAR VOLUME 87.2 FL (78-98); MEAN PLATELET VOLUME 10.4 FL (7.4-10.4); MONOCYTES # (AUTO) 1.1 X10'3 (0-0.9); MONOCYTES % (AUTO) 13.7 % (2-12); NEUTROPHILS # (AUTO) 6.3 X10'3 (1.8-7.7); NEUTROPHILS % (AUTO) 79.6 % (42-75); PLATELET COUNT 90 X10'3 (140-440); RED BLOOD COUNT 3.56 X10'6 (4.20-5.60); RED CELL DISTRIBUTION WIDTH 17.5 % (11.5-14.5); WHITE BLOOD COUNT 7.9 X10'3 (4.5-11.0)
[2019-07-05 04:26] LABS: ABG BASE EXCESS -3.3 mmol/L (-2.0-3.0); ABG HCO3 20.6 mmol/L (22.0-26.0); ABG OXYGEN SATURATION 94.6 % (95-98); ABG PCO2 (T) 33.2 mmHg (35.0-45.0); ABG PO2 (T) 71.6 mmHg (83-108); ALLEN'S TEST POSITIVE; FCOHb 0.3 % (0.5-1.5); FO2Hb 94.3 % (94-100); PATIENT TEMPERATURE 36.9; PEEP 5 cm H2O; RESPIRATORY RATE 12 b/min; TIDAL VOLUME 500 mL; TOTAL HEMOGLOBIN 11.6 G/dl (12.0-16.0)
--- NOTE | 2019-07-05 04:34 | NUR ---
PATIENT RECENTLY RECEIVED NORCO TO PREPARE FOR FULL TURN/BED AND BATH. LATGE LOOSE STOOL, AFTER FULL BATH, PATIENT APPEARED MORE COMFORTABLE HOWEVER MAP 55-57. UPDATED APRIL, BASE FILLER. PRECEDEX GTT STOPPED. WILL CONTINUE TO MONITOR. ALSO JESSICA, BASE FILLER AWARE OF BMP RESULTS.
--- NOTE | 2019-07-05 04:44 | NUR ---
SINCE PATIENT IS AN HD PATIENT AND THE FREE WATER FLUSH ORDER WAS WRITTEN PRIOR TO HD, I HAVE HELD THE FREE WATER FLUSHES THIS SHIFT.
[2019-07-05] MEDS: dexmedetomidin/NS 400mcg/100ml 100 ML IV SCH ×3 (05:10→21:50)
--- NOTE | 2019-07-05 05:45 | NUR ---
patientbp continues to be low. call to [facility], machine chocolate molder. order for albumin. venice, machine chocolate molder also aware of loose stool and hx of c-dif.
[2019-07-05] MEDS ORDERED: albumin (Human) 5% 250ml 250 ML IV ONE (05:55)
[2019-07-05] MEDS: famotidine 20mg tablet PO SCH (07:49)
[2019-07-05] MEDS: venlafaxine 37.5mg tablet PO SCH (07:50)
[2019-07-05] MEDS: lactobacillus rhamnosus 10,000 MMU CELLS/CAPSULE PO SCH (07:51)
[2019-07-05] MEDS: heparin, porcine 5000 units/ml vial SQ SCH ×2 (07:51→20:46)
[2019-07-05] MEDS: NYSTATIN CREAM - 30GM TUBE TP SCH ×2 (07:51→20:50)
[2019-07-05] MEDS: mineral oil/petrolatum, white cream 113gm jar TP SCH ×2 (07:51→20:50)
[2019-07-05] MEDS: psyllium seed 3.4 gm packet PO SCH (07:51)
[2019-07-05] MEDS: diltiazem 30mg tablet PO SCH ×2 (08:00→21:52)
[2019-07-05] MEDS: K and/or MAG REPLACEMENT MC SCH (08:00)
[2019-07-05 08:56] LABS: ALBUMIN 1.9 G/DL (3.4-5.0); ANION GAP 11 (8-16); BLOOD UREA NITROGEN 29 MG/DL (7-18); CALCIUM 7.7 MG/DL (8.5-10.1); CHLORIDE 99 MMOL/L (99-107); CREATININE 9.82 MG/DL (0.40-0.90); GLUCOSE 156 MG/DL (70-104); PHOSPHORUS 2.5 MG/DL (2.3-4.5); POTASSIUM 3.5 MMOL/L (3.5-5.1); SODIUM 135 MMOL/L (135-145); TOTAL CARBON DIOXIDE 25.3 MMOL/L (24-32); eGFR 4 ML/MIN
[2019-07-05] MEDS: amiodarone 200mg tablet PO SCH (09:22)
--- NOTE | 2019-07-05 11:48 | NUR ---
Reassessment: Pt tolerating NGTF at goal meeting needs. LBM 07/03. Possibly needs HD today per MD w/ creatinine increasing. Pt has open abdominal fascia post-op and may require return to OR for closure pending surgeon input per MD. Will continue to monitor for additional protein needs and EN tolerance post-op. Rec: 1. NGTF per surgeon using Vital AF at 70ml/hr goal; to provide 1680ml fluid, 2016kcals, 1361ml free water, and 126g protein. Initiate at 30ml/hr since tolerating trickle TF at 10ml/hr prior and advance 20ml Q8 to goal as tolerated. 2. monitor for EN tolerance 3. PALB Q /; daily wts 4. additional water flush 100 mL Q4H 5. routine bowel care 6. upon extubation, advance diet as medically indicated to heart healthy Addendum: 07/05/19 at [address] Amended: Links added.
[2019-07-05] MEDS ORDERED: normal saline 1000ml 250 ML IV PRN (12:35)
[2019-07-05] MEDS ORDERED: epoetin 20,000 units/ml inj IV ONE (12:35)
[2019-07-05] MEDS ORDERED: albumin (human) 25% 100ml IV 100 ML IV PRN (12:35)
[2019-07-05] MEDS ORDERED: heparin 1,000 units/ml 10ml inj HE ONE ×2 (12:40)
[2019-07-05] MEDS ORDERED: acetaminophen 325mg/10.15ml oral unit dose solution OGT PRN (15:25)
[2019-07-05] MEDS ORDERED: acetaminophen 325mg/10.15ml oral unit dose solution NG PRN ×2 (15:26→15:29)
[2019-07-05] MEDS ORDERED: magnesium hydroxide 30ml (MOM) UD suspension NG PRN (15:26)
[2019-07-05] MEDS ORDERED: POTASSIUM BICARB 20meq eff tab 20 MEQ TABLET.EFF NG PRN ×2 (15:28→15:29)
[2019-07-05] MEDS: HYDROcodone/acetaminophen 5mg/325mg tablet PO PRN (20:45)
[2019-07-05] MEDS: amiodarone 200mg tablet NG SCH (20:46)
[2019-07-05] MEDS: famotidine 20mg tablet NG SCH (20:47)
[2019-07-05] MEDS: lactobacillus rhamnosus 10,000 MMU CELLS/CAPSULE NG SCH (20:47)
[2019-07-05] MEDS: atorvastatin 10mg tablet NG SCH (20:47)
[2019-07-05] MEDS: insulin glargine (Lantus) pen - multi-dose SQ SCH (20:48)
[2019-07-06] VITALS (24 sets, daily range): BP systolic 87–124; BP diastolic 47–77
[2019-07-06] MEDS: HYDROcodone/acetaminophen 10/325mg tab PO PRN (01:15)
--- NOTE | 2019-07-06 01:15 | NUR ---
norco was given for pre-medication for dressing change. [employer]ch was down 00:00 to 03:45. documented in emar late entry
[2019-07-06] MEDS: mineral oil/petrolatum ophthal oint EACHEYE SCH ×4 (02:00→18:46)
[2019-07-06] MEDS: ceFOXitin sod/dextrose 2g/50ml 50 ML IV SCH ×4 (02:00→19:50)
[2019-07-06] MEDS: ipratropium/albuterol 3ml nebule NEB SCH ×6 (03:00→23:07)
[2019-07-06] MEDS: VANCOMYCIN LEVEL IV SCH (03:00)
[2019-07-06 03:53] LABS: BASOPHILS % (AUTO) 0.5 % (0-1); EOSINOPHILS # (AUTO) 0.1 X10'3 (0-0.9); EOSINOPHILS % (AUTO) 1.6 % (0-6); HEMATOCRIT 30.4 % (35.0-45.0); HEMOGLOBIN 10.2 g/dl (12.0-16.0); LYMPHOCYTES # (AUTO) 0.3 X10'3 (1.1-4.8); LYMPHOCYTES % (AUTO) 3.2 % (21-51); MEAN CORPUSCULAR HEMOGLOBIN 29.5 PG (27.0-31.0); MEAN CORPUSCULAR HGB CONC 33.4 g/dL (33.0-36.5); MEAN CORPUSCULAR VOLUME 88.2 FL (78-98); MONOCYTES # (AUTO) 1.2 X10'3 (0-0.9); MONOCYTES % (AUTO) 13.3 % (2-12); NEUTROPHILS # (AUTO) 7.2 X10'3 (1.8-7.7); NEUTROPHILS % (AUTO) 81.4 % (42-75); PLATELET COUNT 103 X10'3 (140-440); RED BLOOD COUNT 3.44 X10'6 (4.20-5.60); RED CELL DISTRIBUTION WIDTH 17.3 % (11.5-14.5); WHITE BLOOD COUNT 8.8 X10'3 (4.5-11.0)
[2019-07-06 04:00] LABS: LARGE PLATELETS FEW; PLATELET ESTIMATE DECREASED
[2019-07-06] MEDS: dexmedetomidin/NS 400mcg/100ml 100 ML IV SCH ×3 (04:02→20:57)
--- NOTE | 2019-07-06 04:05 | NUR ---
abdominal dressing changed. surgical sutures intact, wound well approximated. Leaks sero/sanguanous from lower portion. painted with betadine. new 4x4's down suture line and padded well at lower aspect. Silk tape was used previously however this silk tape causing skin tears. i have used paper tape with this dressing change. pre-medicated prior to dressing change. [facility] 02:00 [facility] so this is a late entry.
[2019-07-06 04:23] LABS: ALANINE AMINOTRANSFERASE 24 U/L (12-78); ALBUMIN/GLOBULIN RATIO 0.6 (1.1-1.5); ALKALINE PHOSPHATASE 105 IU/L (46-116); ANION GAP 5 (8-16); ASPARTATE AMINO TRANSFERASE 31 U/L (10-37); BILIRUBIN,TOTAL 0.4 MG/DL (0.1-1.0); BLOOD UREA NITROGEN 21 MG/DL (7-18); CHLORIDE 101 MMOL/L (99-107); CREATININE 4.16 MG/DL (0.40-0.90); GLUCOSE 129 MG/DL (70-104); MAGNESIUM 2.1 MG/DL (1.5-2.4); POTASSIUM 3.9 MMOL/L (3.5-5.1); SODIUM 135 MMOL/L (135-145); TOTAL CARBON DIOXIDE 29.1 MMOL/L (24-32); TOTAL PROTEIN 5.2 G/DL (6.4-8.2); VANCOMYCIN,RANDOM 19.1 UG/ML; eGFR 10 ML/MIN
[2019-07-06 04:25] LABS: PHOSPHORUS 1.9 MG/DL (2.3-4.5)
[2019-07-06 04:55] LABS: ABG BASE EXCESS 2.4 mmol/L (-2.0-3.0); ABG HCO3 26.5 mmol/L (22.0-26.0); ABG OXYGEN SATURATION 94.1 % (95-98); ABG PCO2 (T) 39.3 mmHg (35.0-45.0); ABG PH (T) 7.447 (7.350-7.450); ABG PO2 (T) 68.9 mmHg (83-108); ALLEN'S TEST POSITIVE; FCOHb 0.1 % (0.5-1.5); FMetHb 0.1 % (0.3-1.12); FO2Hb 93.9 % (94-100); PEEP 5 cm H2O; RESPIRATORY RATE 12 b/min; TIDAL VOLUME 500 mL; TOTAL HEMOGLOBIN 10.9 G/dl (12.0-16.0)
[2019-07-06 06:09] LABS: HBSAG SCREEN Negative (Negative)
[2019-07-06] MEDS: heparin, porcine 5000 units/ml vial SQ SCH ×2 (07:50→20:00)
[2019-07-06] MEDS: NYSTATIN CREAM - 30GM TUBE TP SCH ×2 (07:50→20:19)
[2019-07-06] MEDS: mineral oil/petrolatum, white cream 113gm jar TP SCH ×2 (07:50→20:19)
[2019-07-06] MEDS: lactobacillus rhamnosus 10,000 MMU CELLS/CAPSULE NG SCH ×2 (07:51→19:49)
[2019-07-06] MEDS: famotidine 20mg tablet NG SCH ×2 (07:51→19:49)
[2019-07-06] MEDS: venlafaxine 37.5mg tablet NG SCH (07:52)
[2019-07-06] MEDS: amiodarone 200mg tablet NG SCH ×2 (07:52→19:49)
[2019-07-06] MEDS: psyllium seed 3.4 gm packet NG SCH (07:52)
[2019-07-06] MEDS: K and/or MAG REPLACEMENT MC SCH (08:00)
[2019-07-06] MEDS: diltiazem 30mg tablet PO SCH ×2 (11:17→19:49)
[2019-07-06] MEDS: HYDROcodone/acetaminophen 5mg/325mg tablet PO PRN (20:19)
[2019-07-06] MEDS: insulin glargine (Lantus) pen - multi-dose SQ SCH (20:57)
[2019-07-06] MEDS: atorvastatin 10mg tablet NG SCH (21:31)
[2019-07-07] VITALS (24 sets, daily range): BP systolic 93–133; BP diastolic 42–79
[2019-07-07] MEDS: mineral oil/petrolatum ophthal oint EACHEYE SCH ×4 (01:11→14:32)
[2019-07-07] MEDS: VANCOMYCIN LEVEL IV SCH (02:01)
[2019-07-07] MEDS: ceFOXitin sod/dextrose 2g/50ml 50 ML IV SCH ×4 (02:01→21:13)
[2019-07-07] MEDS: ipratropium/albuterol 3ml nebule NEB SCH ×6 (03:07→23:47)
[2019-07-07] MEDS: HYDROcodone/acetaminophen 5mg/325mg tablet PO PRN ×2 (03:57→21:13)
[2019-07-07 05:07] LABS: BASOPHILS % (AUTO) 0.3 % (0-1); EOSINOPHILS # (AUTO) 0.2 X10'3 (0-0.9); HEMATOCRIT 31.1 % (35.0-45.0); HEMOGLOBIN 10.2 g/dl (12.0-16.0); LYMPHOCYTES # (AUTO) 0.3 X10'3 (1.1-4.8); LYMPHOCYTES % (AUTO) 2.8 % (21-51); MEAN CORPUSCULAR HGB CONC 32.8 g/dL (33.0-36.5); MEAN CORPUSCULAR VOLUME 88.2 FL (78-98); MEAN PLATELET VOLUME 10.4 FL (7.4-10.4); MONOCYTES # (AUTO) 1.1 X10'3 (0-0.9); MONOCYTES % (AUTO) 11.7 % (2-12); NEUTROPHILS # (AUTO) 7.6 X10'3 (1.8-7.7); NEUTROPHILS % (AUTO) 83.2 % (42-75); PLATELET COUNT 107 X10'3 (140-440); RED BLOOD COUNT 3.53 X10'6 (4.20-5.60); RED CELL DISTRIBUTION WIDTH 18.4 % (11.5-14.5); WHITE BLOOD COUNT 9.2 X10'3 (4.5-11.0)
[2019-07-07 05:29] LABS: ALANINE AMINOTRANSFERASE 24 U/L (12-78); ALBUMIN/GLOBULIN RATIO 0.6 (1.1-1.5); ALKALINE PHOSPHATASE 120 IU/L (46-116); ANION GAP 8 (8-16); ASPARTATE AMINO TRANSFERASE 25 U/L (10-37); BILIRUBIN,TOTAL 0.3 MG/DL (0.1-1.0); BLOOD UREA NITROGEN 31 MG/DL (7-18); BUN/CREATININE RATIO 5.3 (6.6-38.0); CALCIUM 8.8 MG/DL (8.5-10.1); CHLORIDE 99 MMOL/L (99-107); CREATININE 5.81 MG/DL (0.40-0.90); GLUCOSE 120 MG/DL (70-104); MAGNESIUM 2.2 MG/DL (1.5-2.4); PHOSPHORUS 2.1 MG/DL (2.3-4.5); POTASSIUM 4.5 MMOL/L (3.5-5.1); SODIUM 134 MMOL/L (135-145); TOTAL PROTEIN 5.5 G/DL (6.4-8.2); VANCOMYCIN,RANDOM 17.7 UG/ML; eGFR 7 ML/MIN
--- NOTE | 2019-07-07 07:00 | NUR ---
patient failed swallow study by speech therapist
[2019-07-07] MEDS: dexmedetomidin/NS 400mcg/100ml 100 ML IV SCH ×3 (07:10→23:46)
[2019-07-07] MEDS: diltiazem 30mg tablet PO SCH ×2 (07:17→21:13)
[2019-07-07] MEDS: NYSTATIN CREAM - 30GM TUBE TP SCH ×2 (07:26→20:00)
[2019-07-07] MEDS: psyllium seed 3.4 gm packet NG SCH (07:26)
[2019-07-07] MEDS: mineral oil/petrolatum, white cream 113gm jar TP SCH ×2 (07:26→21:13)
[2019-07-07] MEDS: famotidine 20mg tablet NG SCH ×2 (07:26→21:13)
[2019-07-07] MEDS: heparin, porcine 5000 units/ml vial SQ SCH ×2 (07:26→20:00)
[2019-07-07] MEDS: lactobacillus rhamnosus 10,000 MMU CELLS/CAPSULE NG SCH ×2 (07:26→21:19)
[2019-07-07] MEDS: amiodarone 200mg tablet NG SCH ×2 (07:26→21:14)
[2019-07-07] MEDS: K and/or MAG REPLACEMENT MC SCH (07:40)
[2019-07-07] MEDS ORDERED: normal saline 1000ml 250 ML IV PRN (08:00)
[2019-07-07] MEDS ORDERED: heparin 1,000 units/ml 10ml inj HE ONE ×2 (08:00)
[2019-07-07] MEDS ORDERED: albumin (human) 25% 100ml IV 100 ML IV PRN (08:00)
[2019-07-07] MEDS ORDERED: heparin 1,000unit/ml 10ml vial 10 ML IV ONE (08:00)
[2019-07-07] MEDS ORDERED: epoetin 20,000 units/ml inj IV ONE (08:00)
[2019-07-07] MEDS: venlafaxine 37.5mg tablet NG SCH (08:25)
[2019-07-07 09:04] LABS: PLATELET ESTIMATE DECREASED; TOTAL CELLS COUNTED 100
[2019-07-07 09:05] LABS: POLYCHROMASIA FEW; SCHISTOCYTES FEW
[2019-07-07 09:06] LABS: LARGE PLATELETS FEW
--- NOTE | 2019-07-07 10:09 | NUR ---
Updated POC with Dr. Huntley, made him aware of failed swallow study, patient still has NG tube in and is receiving tube feeding at goal. Dialysis is at the bedside and dialysis is running to address creatinine of 5.8. Patient wakes up and is alert when spoken to but, falls right back asleep. Dr. Huntley would like PT to evaluate.
--- NOTE | 2019-07-07 10:44 | NUR ---
Reassessment: Pt extubated NG remains receiving EN and tolerating at goal. ELISA d/w RN regarding holding water flushes per simulation specialist approval given Na 134 today and pt on HD. LBM 07/03. Will continue to monitor. Rec: 1. NGTF per surgeon using Vital AF at 70ml/hr goal; to provide 1680ml fluid, 2016kcals, 1361ml free water, and 126g protein. Initiate at 30ml/hr since tolerating trickle TF at 10ml/hr prior and advance 20ml Q8 to goal as tolerated. 2. PALB Q /; daily wts 3. additional water flush per simulation specialist on HD 4. routine bowel care 5. advance diet as medically indicated to heart healthy Addendum: 07/07/19 at [address] Amended: Links added.
--- NOTE | 2019-07-07 18:24 | NUR ---
gave report to oncoming RN
[2019-07-07] MEDS: insulin glargine (Lantus) pen - multi-dose SQ SCH (21:00)
[2019-07-07] MEDS: atorvastatin 10mg tablet NG SCH (21:13)
[2019-07-08] VITALS (23 sets, daily range): BP systolic 88–135; BP diastolic 51–88
[2019-07-08] MEDS: VANCOMYCIN LEVEL IV SCH (00:49)
[2019-07-08] MEDS: mineral oil/petrolatum ophthal oint EACHEYE SCH ×2 (01:51→07:48)
[2019-07-08] MEDS: ceFOXitin sod/dextrose 2g/50ml 50 ML IV SCH ×4 (01:52→20:11)
[2019-07-08 02:48] LABS: BASOPHILS % (AUTO) 0.3 % (0-1); EOSINOPHILS # (AUTO) 0.2 X10'3 (0-0.9); EOSINOPHILS % (AUTO) 1.6 % (0-6); HEMATOCRIT 30.9 % (35.0-45.0); HEMOGLOBIN 9.8 g/dl (12.0-16.0); LYMPHOCYTES # (AUTO) 0.3 X10'3 (1.1-4.8); LYMPHOCYTES % (AUTO) 2.4 % (21-51); MEAN CORPUSCULAR HEMOGLOBIN 28.7 PG (27.0-31.0); MEAN CORPUSCULAR HGB CONC 31.8 g/dL (33.0-36.5); MEAN CORPUSCULAR VOLUME 90.2 FL (78-98); MEAN PLATELET VOLUME 11.1 FL (7.4-10.4); MONOCYTES # (AUTO) 1.4 X10'3 (0-0.9); MONOCYTES % (AUTO) 12.1 % (2-12); NEUTROPHILS # (AUTO) 9.7 X10'3 (1.8-7.7); NEUTROPHILS % (AUTO) 83.6 % (42-75); PLATELET COUNT 123 X10'3 (140-440); RED BLOOD COUNT 3.43 X10'6 (4.20-5.60); RED CELL DISTRIBUTION WIDTH 17.8 % (11.5-14.5); WHITE BLOOD COUNT 11.5 X10'3 (4.5-11.0)
[2019-07-08 03:04] LABS: ALANINE AMINOTRANSFERASE 19 U/L (12-78); ALBUMIN 1.8 G/DL (3.4-5.0); ALBUMIN/GLOBULIN RATIO 0.5 (1.1-1.5); ALKALINE PHOSPHATASE 121 IU/L (46-116); ANION GAP 7 (8-16); ASPARTATE AMINO TRANSFERASE 25 U/L (10-37); BILIRUBIN,TOTAL 0.3 MG/DL (0.1-1.0); BLOOD UREA NITROGEN 24 MG/DL (7-18); BUN/CREATININE RATIO 4.8 (6.6-38.0); CALCIUM 8.7 MG/DL (8.5-10.1); CHLORIDE 100 MMOL/L (99-107); CREATININE 4.97 MG/DL (0.40-0.90); GLUCOSE 126 MG/DL (70-104); PHOSPHORUS 1.8 MG/DL (2.3-4.5); POTASSIUM 4.1 MMOL/L (3.5-5.1); PREALBUMIN 17.1 MG/DL (19-36); SODIUM 136 MMOL/L (135-145); TOTAL CARBON DIOXIDE 28.7 MMOL/L (24-32); TOTAL PROTEIN 5.5 G/DL (6.4-8.2); eGFR 8 ML/MIN
[2019-07-08 03:29] LABS: PLATELET ESTIMATE DECREASED
[2019-07-08 03:32] LABS: LARGE PLATELETS MANY
[2019-07-08] MEDS: ipratropium/albuterol 3ml nebule NEB SCH ×6 (04:03→23:11)
--- NOTE | 2019-07-08 06:43 | NUR ---
Patient in room CICU 2008. I have received report from Reina ANDERSON and had the opportunity to ask questions and assume patient care.
[2019-07-08] MEDS: famotidine 20mg tablet NG SCH ×2 (07:46→20:12)
[2019-07-08] MEDS: diltiazem 30mg tablet PO SCH ×2 (07:46→20:12)
[2019-07-08] MEDS: venlafaxine 37.5mg tablet NG SCH (07:46)
[2019-07-08] MEDS: lactobacillus rhamnosus 10,000 MMU CELLS/CAPSULE NG SCH ×2 (07:46→20:12)
[2019-07-08] MEDS: amiodarone 200mg tablet NG SCH ×2 (07:46→20:12)
[2019-07-08] MEDS: psyllium seed 3.4 gm packet NG SCH (07:48)
[2019-07-08] MEDS: heparin, porcine 5000 units/ml vial SQ SCH ×2 (07:48→20:12)
[2019-07-08] MEDS ORDERED: albumin (human) 25% 100ml IV 100 ML IV PRN (08:00)
[2019-07-08] MEDS ORDERED: epoetin 20,000 units/ml inj IV ONE (08:00)
[2019-07-08] MEDS ORDERED: heparin 1,000 units/ml 10ml inj HE ONE ×2 (08:00)
[2019-07-08] MEDS ORDERED: heparin 1,000 units/ml 10ml inj IV ONE (08:00)
[2019-07-08] MEDS ORDERED: normal saline 1000ml 250 ML IV PRN (08:00)
[2019-07-08] MEDS: NYSTATIN CREAM - 30GM TUBE TP SCH ×2 (08:10→20:13)
[2019-07-08] MEDS: dexmedetomidin/NS 400mcg/100ml 100 ML IV SCH ×2 (08:10→16:30)
[2019-07-08] MEDS: mineral oil/petrolatum, white cream 113gm jar TP SCH ×2 (08:10→20:13)
--- NOTE | 2019-07-08 19:02 | NUR ---
Patient report given, questions answered & plan of care reviewed with Olga ANDERSON.
[2019-07-08] MEDS: atorvastatin 10mg tablet NG SCH (20:12)
[2019-07-08] MEDS: insulin glargine (Lantus) pen - multi-dose SQ SCH (21:00)
[2019-07-09] VITALS (23 sets, daily range): BP systolic 94–155; BP diastolic 50–92
[2019-07-09] MEDS: dexmedetomidin/NS 400mcg/100ml 100 ML IV SCH ×3 (00:50→16:07)
[2019-07-09] MEDS: ceFOXitin sod/dextrose 2g/50ml 50 ML IV SCH ×4 (02:30→20:20)
[2019-07-09] MEDS: VANCOMYCIN LEVEL IV SCH (03:00)
[2019-07-09] MEDS: ipratropium/albuterol 3ml nebule NEB SCH ×6 (03:00→23:33)
[2019-07-09 03:02] LABS: BASOPHILS # (AUTO) 0.1 X10'3 (0-0.2); BASOPHILS % (AUTO) 0.4 % (0-1); EOSINOPHILS # (AUTO) 0.2 X10'3 (0-0.9); EOSINOPHILS % (AUTO) 1.2 % (0-6); HEMATOCRIT 30.1 % (35.0-45.0); HEMOGLOBIN 9.8 g/dl (12.0-16.0); LYMPHOCYTES # (AUTO) 0.4 X10'3 (1.1-4.8); LYMPHOCYTES % (AUTO) 2.6 % (21-51); MEAN CORPUSCULAR HGB CONC 32.4 g/dL (33.0-36.5); MEAN CORPUSCULAR VOLUME 89.4 FL (78-98); MONOCYTES # (AUTO) 1.4 X10'3 (0-0.9); MONOCYTES % (AUTO) 9.8 % (2-12); NEUTROPHILS # (AUTO) 12.2 X10'3 (1.8-7.7); PLATELET COUNT 131 X10'3 (140-440); RED BLOOD COUNT 3.37 X10'6 (4.20-5.60); RED CELL DISTRIBUTION WIDTH 18.1 % (11.5-14.5); WHITE BLOOD COUNT 14.2 X10'3 (4.5-11.0)
[2019-07-09 03:19] LABS: ALANINE AMINOTRANSFERASE 23 U/L (12-78); ALBUMIN 1.7 G/DL (3.4-5.0); ALBUMIN/GLOBULIN RATIO 0.4 (1.1-1.5); ALKALINE PHOSPHATASE 131 IU/L (46-116); ANION GAP 6 (8-16); ASPARTATE AMINO TRANSFERASE 25 U/L (10-37); BILIRUBIN,TOTAL 0.3 MG/DL (0.1-1.0); BLOOD UREA NITROGEN 23 MG/DL (7-18); CALCIUM 8.8 MG/DL (8.5-10.1); CHLORIDE 101 MMOL/L (99-107); CREATININE 4.59 MG/DL (0.40-0.90); GLUCOSE 131 MG/DL (70-104); MAGNESIUM 1.9 MG/DL (1.5-2.4); PHOSPHORUS 1.5 MG/DL (2.3-4.5); SODIUM 137 MMOL/L (135-145); TOTAL CARBON DIOXIDE 30.4 MMOL/L (24-32); TOTAL PROTEIN 5.6 G/DL (6.4-8.2); VANCOMYCIN,RANDOM 11.9 UG/ML; eGFR 9 ML/MIN
[2019-07-09 03:48] LABS: ANISOCYTOSIS 2+; LARGE PLATELETS MODERATE; MICROCYTOSIS 1+; PLATELET ESTIMATE DECREASED; STOMATOCYTES 1+
--- NOTE | 2019-07-09 06:41 | NUR ---
Problems reprioritized. Patient report given, questions answered & plan of care reviewed with Mukesh ANDERSON.
[2019-07-09] MEDS ORDERED: epiNEPHrine 0.1mg/ml 10ml syringe ONE (08:00)
[2019-07-09] MEDS: amiodarone 200mg tablet NG SCH ×2 (08:20→20:20)
[2019-07-09] MEDS: famotidine 20mg tablet NG SCH ×2 (08:20→20:20)
[2019-07-09] MEDS: diltiazem 30mg tablet PO SCH ×2 (08:20→20:20)
[2019-07-09] MEDS: lactobacillus rhamnosus 10,000 MMU CELLS/CAPSULE NG SCH ×2 (08:21→20:20)
[2019-07-09] MEDS: NYSTATIN CREAM - 30GM TUBE TP SCH ×2 (08:21→20:21)
[2019-07-09] MEDS: heparin, porcine 5000 units/ml vial SQ SCH ×2 (08:21→20:21)
[2019-07-09] MEDS: mineral oil/petrolatum, white cream 113gm jar TP SCH ×2 (08:21→20:21)
[2019-07-09] MEDS: psyllium seed 3.4 gm packet NG SCH (08:21)
--- NOTE | 2019-07-09 11:06 | NUR ---
PT HAVING INCONTINENT STOOLS THAT ARE MUCUSY, FOUL ODOR AND LOOSE. CDIFF FORM FILLED OUT. MESSAGE LEFT FOR BRET MOHAN RN. DR. ROLAND JUSTINED THE ORDER FOR CDIFF CULTURE. SPECIMEN SENT.
--- NOTE | 2019-07-09 15:01 | NUR ---
Reassessment: Pt receiving EN and tolerating at goal. Receiving TF d/t unable to pass swallow eval, BSS reassessment done this morning by , reporting that due to patient's cognitive level is holding food in mouth and not moving to bolus and refuses food or liquid. Per Physical assessment patient is confused and pulling at lines. Documented with moderate liquid stools, is receiving Metamucil. Per MD note patient has fluid overload and pleural effusions Rec: 1. Continue NG tube feeding using Vital AF at 70ml/hr goal; to provide 1680ml fluid, 2016kcals, 1361ml free water, and 126g protein. 2. PALB q /; daily wts 3. additional water flush 150 q 4, sodium WNL 4. routine bowel care 5. when passes swallow eval, advance diet as medically indicated to heart healthy per recs Addendum: 07/09/19 at [address] Amended: Links added.
[2019-07-09] MEDS: magnesium 4gm in 100ml NS 100 ML IV PRN (17:12)
--- NOTE | 2019-07-09 18:22 | NUR ---
Problems reprioritized. Patient report given, questions answered & plan of care reviewed with Olga ANDERSON.
[2019-07-09] MEDS: atorvastatin 10mg tablet NG SCH (20:20)
[2019-07-09] MEDS: insulin glargine (Lantus) pen - multi-dose SQ SCH (21:00)
[2019-07-10] VITALS (22 sets, daily range): BP systolic 82–134; BP diastolic 48–77
[2019-07-10] MEDS: ceFOXitin sod/dextrose 2g/50ml 50 ML IV SCH ×2 (02:53→07:40)
[2019-07-10] MEDS: ipratropium/albuterol 3ml nebule NEB SCH ×8 (03:03→23:07)
[2019-07-10 03:18] LABS: ALANINE AMINOTRANSFERASE 22 U/L (12-78); ALBUMIN 1.7 G/DL (3.4-5.0); ALBUMIN/GLOBULIN RATIO 0.4 (1.1-1.5); ALKALINE PHOSPHATASE 124 IU/L (46-116); ANION GAP 7 (8-16); ASPARTATE AMINO TRANSFERASE 28 U/L (10-37); BASOPHILS # (AUTO) 0.1 X10'3 (0-0.2); BASOPHILS % (AUTO) 0.3 % (0-1); BILIRUBIN,TOTAL 0.3 MG/DL (0.1-1.0); BLOOD UREA NITROGEN 31 MG/DL (7-18); BUN/CREATININE RATIO 4.8 (6.6-38.0); CALCIUM 9.3 MG/DL (8.5-10.1); CHLORIDE 99 MMOL/L (99-107); EOSINOPHILS # (AUTO) 0.3 X10'3 (0-0.9); EOSINOPHILS % (AUTO) 1.9 % (0-6); GLUCOSE 120 MG/DL (70-104); HEMATOCRIT 30.2 % (35.0-45.0); HEMOGLOBIN 9.6 g/dl (12.0-16.0); LYMPHOCYTES # (AUTO) 0.4 X10'3 (1.1-4.8); LYMPHOCYTES % (AUTO) 2.4 % (21-51); MEAN CORPUSCULAR HEMOGLOBIN 28.7 PG (27.0-31.0); MEAN CORPUSCULAR HGB CONC 31.7 g/dL (33.0-36.5); MEAN CORPUSCULAR VOLUME 90.5 FL (78-98); MONOCYTES # (AUTO) 1.3 X10'3 (0-0.9); MONOCYTES % (AUTO) 8.6 % (2-12); NEUTROPHILS # (AUTO) 13.6 X10'3 (1.8-7.7); NEUTROPHILS % (AUTO) 86.8 % (42-75); PLATELET COUNT 161 X10'3 (140-440); POTASSIUM 4.2 MMOL/L (3.5-5.1); RED BLOOD COUNT 3.34 X10'6 (4.20-5.60); RED CELL DISTRIBUTION WIDTH 18.7 % (11.5-14.5); SODIUM 135 MMOL/L (135-145); TOTAL CARBON DIOXIDE 29.2 MMOL/L (24-32); TOTAL PROTEIN 5.7 G/DL (6.4-8.2); WHITE BLOOD COUNT 15.7 X10'3 (4.5-11.0); eGFR 6 ML/MIN
[2019-07-10 04:08] LABS: ANISOCYTOSIS 2+; LARGE PLATELETS MODERATE; MICROCYTOSIS 1+; PLATELET ESTIMATE NORMAL; TOTAL CELLS COUNTED 100
[2019-07-10 04:09] LABS: POLYCHROMASIA FEW; STOMATOCYTES FEW
--- NOTE | 2019-07-10 06:34 | NUR ---
Problems reprioritized. Patient report given, questions answered & plan of care reviewed with Kenroy ANDERSON.
[2019-07-10 06:38] LABS: MAGNESIUM 2.7 MG/DL (1.5-2.4); PHOSPHORUS 2.5 MG/DL (2.3-4.5)
[2019-07-10] MEDS: famotidine 20mg tablet NG SCH ×2 (07:40→20:37)
[2019-07-10] MEDS: heparin, porcine 5000 units/ml vial SQ SCH (07:40)
[2019-07-10] MEDS: lactobacillus rhamnosus 10,000 MMU CELLS/CAPSULE NG SCH ×2 (07:40→20:37)
[2019-07-10] MEDS: amiodarone 200mg tablet NG SCH (07:40)
[2019-07-10] MEDS: NYSTATIN CREAM - 30GM TUBE TP SCH ×2 (07:41→20:33)
[2019-07-10] MEDS: mineral oil/petrolatum, white cream 113gm jar TP SCH ×2 (07:41→20:33)
[2019-07-10] MEDS ORDERED: rocuronium bromide 100mg/10ml (10mg/ml) injection IV ONE (08:00)
[2019-07-10] MEDS: psyllium seed 3.4 gm packet NG SCH (08:00)
[2019-07-10] MEDS ORDERED: heparin 1,000unit/ml 10ml vial 10 ML IV ONE (08:00)
[2019-07-10] MEDS ORDERED: heparin 1,000 units/ml 10ml inj IV ONE (08:00)
[2019-07-10] MEDS: diltiazem 30mg tablet PO SCH ×2 (08:00→20:37)
[2019-07-10] MEDS ORDERED: heparin 1,000 units/ml 10ml inj HE ONE ×2 (08:00)
[2019-07-10] MEDS ORDERED: epoetin 20,000 units/ml inj IV ONE (08:00)
[2019-07-10] MEDS ORDERED: normal saline 1000ml 250 ML IV PRN (08:00)
[2019-07-10] MEDS ORDERED: albumin (human) 25% 100ml IV 100 ML IV PRN (08:00)
[2019-07-10] MEDS ORDERED: FENTANYL-0.9 % NACL/PF 100 ML IV PRN (10:53)
[2019-07-10] MEDS ORDERED: etomidate 2mg/ml inj. IV ONE (10:55)
[2019-07-10] MEDS ORDERED: rocuronium 10mg/ml inj IV ONE (10:55)
[2019-07-10] MEDS ORDERED: fentaNYL 50mcg/ml PF inj. 2,500 MCG in normal saline 250ml IV soln 200 ML IV SCH (11:10)
[2019-07-10] MEDS ORDERED: vancomycin/NS 1 GM ADD-VANTAGE 250 ML IV ONE (11:25)
[2019-07-10] MEDS: midazolam 100mg in NS 100ml 100 ML IV PRN (11:42)
[2019-07-10] MEDS ORDERED: vancomycin/NS 1 GM ADD-VANTAGE 250 ML IV PRN (11:45)
[2019-07-10 11:53] LABS: ALBUMIN 1.7 G/DL (3.4-5.0); ANION GAP 8 (8-16); BLOOD UREA NITROGEN 35 MG/DL (7-18); BUN/CREATININE RATIO 4.9 (6.6-38.0); CALCIUM 9.3 MG/DL (8.5-10.1); CHLORIDE 99 MMOL/L (99-107); CREATININE 7.18 MG/DL (0.40-0.90); GLUCOSE 150 MG/DL (70-104); POTASSIUM 4.3 MMOL/L (3.5-5.1); SODIUM 136 MMOL/L (135-145); TOTAL CARBON DIOXIDE 29.4 MMOL/L (24-32); eGFR 5 ML/MIN
[2019-07-10 12:06] LABS: ABG BASE EXCESS -3.4 mmol/L (-2.0-3.0); ABG HCO3 21.3 mmol/L (22.0-26.0); ABG OXYGEN SATURATION 99.4 % (95-98); ABG PCO2 (T) 36.5 mmHg (35.0-45.0); ABG PH (T) 7.383 (7.350-7.450); ABG PO2 (T) 230.5 mmHg (83-108); ALLEN'S TEST POSITIVE; FCOHb 0.3 % (0.5-1.5); FMetHb 0.1 % (0.3-1.12); PEEP 5 cm H2O; RESPIRATORY RATE 20 b/min; TIDAL VOLUME 581 mL; TOTAL HEMOGLOBIN 10.6 G/dl (12.0-16.0)
[2019-07-10] MEDS ORDERED: fentaNYL 50mcg/ml PF inj. 2,500 MCG in normal saline 250ml IV soln 200 ML IV PRN (12:10)
--- NOTE | 2019-07-10 13:00 | NUR ---
Briefly into dialysis, patient became bradycardic, desaturated, and became asystolic. A code was called, CPR performed, and patient quickly had a ROSC. No medications administered during code. Dr. Huntley at bedside during code and intubated post-ROSC and patient placed on Fentanyl/Versed drips. Patient's blood pressure also decreased to SBP of 70s with MAP in the 50s; levophed started per MD. Patient did become arrousable and nodded head and moved extremities appropriately.
[2019-07-10] MEDS: NORepinephrine 8mg/ 250ml NS 250 ML IV SCH (13:02)
[2019-07-10] MEDS: vancomycin/NS 1 GM ADD-VANTAGE 250 ML IV ONE ×2 (13:18→14:26)
[2019-07-10] MEDS ORDERED: fentaNYL/NS/PF 2,500 mcg/250mL 250 ML IV SCH (13:27)
[2019-07-10] MEDS: piperacillin/tazo 3.375gm/50ml 50 ML IV SCH (16:16)
--- NOTE | 2019-07-10 18:23 | NUR ---
Problems reprioritized. Patient report given, questions answered & plan of care reviewed with Reina ANDERSON.
[2019-07-10] MEDS: atorvastatin 10mg tablet NG SCH (20:37)
[2019-07-10] MEDS: insulin glargine (Lantus) pen - multi-dose SQ SCH (20:42)
[2019-07-11] VITALS (24 sets, daily range): BP systolic 90–124; BP diastolic 51–86
[2019-07-11] MEDS: piperacillin/tazo 3.375gm/50ml 50 ML IV SCH ×3 (00:28→20:57)
[2019-07-11] MEDS: VANCOMYCIN LEVEL IV SCH (03:00)
[2019-07-11 03:04] LABS: BASOPHILS # (AUTO) 0.1 X10'3 (0-0.2); BASOPHILS % (AUTO) 0.5 % (0-1); EOSINOPHILS # (AUTO) 0.3 X10'3 (0-0.9); EOSINOPHILS % (AUTO) 2.3 % (0-6); HEMATOCRIT 29.4 % (35.0-45.0); HEMOGLOBIN 9.3 g/dl (12.0-16.0); LYMPHOCYTES # (AUTO) 0.4 X10'3 (1.1-4.8); MEAN CORPUSCULAR HEMOGLOBIN 28.3 PG (27.0-31.0); MEAN CORPUSCULAR HGB CONC 31.5 g/dL (33.0-36.5); MEAN PLATELET VOLUME 11.1 FL (7.4-10.4); MONOCYTES # (AUTO) 1.1 X10'3 (0-0.9); MONOCYTES % (AUTO) 7.4 % (2-12); NEUTROPHILS # (AUTO) 12.8 X10'3 (1.8-7.7); NEUTROPHILS % (AUTO) 86.8 % (42-75); PLATELET COUNT 151 X10'3 (140-440); RED BLOOD COUNT 3.27 X10'6 (4.20-5.60); RED CELL DISTRIBUTION WIDTH 18.3 % (11.5-14.5); WHITE BLOOD COUNT 14.8 X10'3 (4.5-11.0)
[2019-07-11 03:18] LABS: ALANINE AMINOTRANSFERASE 25 U/L (12-78); ALBUMIN 1.4 G/DL (3.4-5.0); ALBUMIN/GLOBULIN RATIO 0.4 (1.1-1.5); ALKALINE PHOSPHATASE 122 IU/L (46-116); ANION GAP 9 (8-16); ASPARTATE AMINO TRANSFERASE 32 U/L (10-37); BILIRUBIN,TOTAL 0.4 MG/DL (0.1-1.0); BLOOD UREA NITROGEN 41 MG/DL (7-18); CALCIUM 8.8 MG/DL (8.5-10.1); CHLORIDE 99 MMOL/L (99-107); CREATININE 6.86 MG/DL (0.40-0.90); GLUCOSE 102 MG/DL (70-104); MAGNESIUM 2.5 MG/DL (1.5-2.4); POTASSIUM 4.1 MMOL/L (3.5-5.1); SODIUM 135 MMOL/L (135-145); TOTAL CARBON DIOXIDE 27.4 MMOL/L (24-32); TOTAL PROTEIN 5.2 G/DL (6.4-8.2); VANCOMYCIN,RANDOM 29.7 UG/ML; eGFR 6 ML/MIN
[2019-07-11] MEDS: ipratropium/albuterol 3ml nebule NEB SCH ×6 (03:35→22:59)
[2019-07-11 03:51] LABS: ABG BASE EXCESS 1.8 mmol/L (-2.0-3.0); ABG HCO3 24.3 mmol/L (22.0-26.0); ABG OXYGEN SATURATION 96.8 % (95-98); ABG PCO2 (T) 30.2 mmHg (35.0-45.0); ABG PH (T) 7.522 (7.350-7.450); ABG PO2 (T) 82.8 mmHg (83-108); ALLEN'S TEST POSITIVE; FCOHb 0.3 % (0.5-1.5); FO2Hb 96.5 % (94-100); PATIENT TEMPERATURE 36.5; PEEP 5 cm H2O; RESPIRATORY RATE 20 b/min; TIDAL VOLUME 500 mL; TOTAL HEMOGLOBIN 10.6 G/dl (12.0-16.0)
[2019-07-11] MEDS: midazolam 100mg in NS 100ml 100 ML IV PRN (04:39)
[2019-07-11] MEDS: lactobacillus rhamnosus 10,000 MMU CELLS/CAPSULE NG SCH ×2 (07:49→20:56)
[2019-07-11] MEDS: famotidine 20mg tablet NG SCH ×2 (07:49→20:56)
[2019-07-11] MEDS: amiodarone 200mg tablet NG SCH (07:49)
[2019-07-11] MEDS: psyllium seed 3.4 gm packet NG SCH (07:50)
[2019-07-11] MEDS: diltiazem 30mg tablet PO SCH ×3 (07:50→16:08)
[2019-07-11] MEDS: enoxaparin 100mg/ml syringe SUBCUT SCH (07:51)
[2019-07-11] MEDS: mineral oil/petrolatum, white cream 113gm jar TP SCH ×2 (07:52→20:56)
[2019-07-11] MEDS: NYSTATIN CREAM - 30GM TUBE TP SCH ×2 (07:52→20:56)
[2019-07-11] MEDS: FENTANYL 1000MCG/NS 100 ML BAG /PF IV PRN (13:51)
[2019-07-11] MEDS: mineral oil/petrolatum ophthal oint EACHEYE SCH ×2 (14:00→20:00)
[2019-07-11] MEDS: NORepinephrine 8mg/ 250ml NS 250 ML IV SCH (18:17)
[2019-07-11] MEDS: atorvastatin 10mg tablet NG SCH (20:56)
[2019-07-11] MEDS: insulin glargine (Lantus) pen - multi-dose SQ SCH (21:00)
[2019-07-12] VITALS (27 sets, daily range): BP systolic 0–129; BP diastolic 42–87
[2019-07-12] MEDS: midazolam 100mg in NS 100ml 100 ML IV PRN ×2 (00:08→18:28)
[2019-07-12] MEDS: diltiazem 30mg tablet PO SCH ×5 (00:08→22:19)
[2019-07-12] MEDS: FENTANYL 1000MCG/NS 100 ML BAG /PF IV PRN ×2 (00:09→14:45)
[2019-07-12] MEDS: VANCOMYCIN LEVEL IV SCH (02:17)
[2019-07-12] MEDS: mineral oil/petrolatum ophthal oint EACHEYE SCH ×4 (02:17→22:18)
[2019-07-12 02:48] LABS: ALANINE AMINOTRANSFERASE 25 U/L (12-78); ALBUMIN 1.3 G/DL (3.4-5.0); ALBUMIN/GLOBULIN RATIO 0.3 (1.1-1.5); ALKALINE PHOSPHATASE 126 IU/L (46-116); ANION GAP 10 (8-16); ASPARTATE AMINO TRANSFERASE 23 U/L (10-37); BILIRUBIN,TOTAL 0.4 MG/DL (0.1-1.0); BLOOD UREA NITROGEN 53 MG/DL (7-18); BUN/CREATININE RATIO 7.4 (6.6-38.0); CALCIUM 8.8 MG/DL (8.5-10.1); CHLORIDE 99 MMOL/L (99-107); CREATININE 7.14 MG/DL (0.40-0.90); GLUCOSE 122 MG/DL (70-104); MAGNESIUM 2.6 MG/DL (1.5-2.4); PHOSPHORUS 2.9 MG/DL (2.3-4.5); POTASSIUM 4.9 MMOL/L (3.5-5.1); PREALBUMIN 17.1 MG/DL (19-36); SODIUM 134 MMOL/L (135-145); TOTAL CARBON DIOXIDE 25.3 MMOL/L (24-32); TOTAL PROTEIN 5.2 G/DL (6.4-8.2); VANCOMYCIN,RANDOM 23.8 UG/ML; eGFR 6 ML/MIN
[2019-07-12 02:52] LABS: BASOPHILS # (AUTO) 0.1 X10'3 (0-0.2); BASOPHILS % (AUTO) 0.8 % (0-1); EOSINOPHILS # (AUTO) 0.4 X10'3 (0-0.9); EOSINOPHILS % (AUTO) 2.8 % (0-6); HEMATOCRIT 29.3 % (35.0-45.0); HEMOGLOBIN 9.4 g/dl (12.0-16.0); LYMPHOCYTES # (AUTO) 0.5 X10'3 (1.1-4.8); LYMPHOCYTES % (AUTO) 3.5 % (21-51); MEAN CORPUSCULAR HEMOGLOBIN 28.8 PG (27.0-31.0); MEAN PLATELET VOLUME 11.1 FL (7.4-10.4); MONOCYTES # (AUTO) 1.3 X10'3 (0-0.9); MONOCYTES % (AUTO) 9.3 % (2-12); NEUTROPHILS # (AUTO) 11.3 X10'3 (1.8-7.7); NEUTROPHILS % (AUTO) 83.6 % (42-75); PLATELET COUNT 160 X10'3 (140-440); RED BLOOD COUNT 3.26 X10'6 (4.20-5.60); RED CELL DISTRIBUTION WIDTH 18.6 % (11.5-14.5); WHITE BLOOD COUNT 13.5 X10'3 (4.5-11.0)
[2019-07-12] MEDS: ipratropium/albuterol 3ml nebule NEB SCH ×6 (02:58→23:02)
[2019-07-12 04:55] LABS: ABG BASE EXCESS -1.6 mmol/L (-2.0-3.0); ABG HCO3 21.3 mmol/L (22.0-26.0); ABG PCO2 (T) 29.7 mmHg (35.0-45.0); ABG PH (T) 7.472 (7.350-7.450); ABG PO2 (T) 65.6 mmHg (83-108); ALLEN'S TEST POSITIVE; FMetHb 0.1 % (0.3-1.12); FO2Hb 92.9 % (94-100); PATIENT TEMPERATURE 37.1; PEEP 5 cm H2O; RESPIRATORY RATE 18 b/min; TIDAL VOLUME 500 mL; TOTAL HEMOGLOBIN 10.5 G/dl (12.0-16.0)
[2019-07-12] MEDS: amiodarone 200mg tablet NG SCH (07:38)
[2019-07-12] MEDS: lactobacillus rhamnosus 10,000 MMU CELLS/CAPSULE NG SCH ×2 (07:38→22:19)
[2019-07-12] MEDS: famotidine 20mg tablet NG SCH ×2 (07:39→20:00)
[2019-07-12] MEDS: piperacillin/tazo 3.375gm/50ml 50 ML IV SCH ×2 (07:39→20:00)
[2019-07-12] MEDS: psyllium seed 3.4 gm packet NG SCH (07:39)
[2019-07-12] MEDS: NYSTATIN CREAM - 30GM TUBE TP SCH ×2 (07:40→20:00)
[2019-07-12] MEDS: enoxaparin 100mg/ml syringe SUBCUT SCH (07:40)
[2019-07-12] MEDS: mineral oil/petrolatum, white cream 113gm jar TP SCH ×2 (07:41→20:00)
[2019-07-12] MEDS ORDERED: epoetin 20,000 units/ml inj IV ONE (08:00)
[2019-07-12] MEDS ORDERED: heparin 1,000unit/ml 10ml vial 10 ML IV ONE (08:00)
[2019-07-12] MEDS ORDERED: normal saline 1000ml 250 ML IV PRN (08:00)
[2019-07-12] MEDS ORDERED: heparin 1,000 units/ml 10ml inj HE ONE ×2 (08:00)
[2019-07-12] MEDS ORDERED: heparin 1,000 units/ml 10ml inj IV ONE (08:00)
--- NOTE | 2019-07-12 11:45 | NUR ---
Reassessment: Pt now reintubated s/p abdominal decompression for compartment syndrome per MD and tolerating TF at goal GRV WNL. Na 134 today receiving 150ml free water Q4 on HD; ELISA d/w steward/stewardess who agrees change to 50ml Q4 free water. LBM 07/09. Will continue to monitor. Rec: 1. Continue NG tube feeding using Vital AF at 70ml/hr goal; to provide 1680ml fluid, 2016kcals, 1361ml free water, and 126g protein. 2. PALB q /; daily wts 3. additional water flush 50ml q4 4. routine bowel care; monitor for GI symptoms post-op 5. upon extubation, advance diet as medically indicated to heart healthy per recs Addendum: 07/12/19 at [address] Amended: Links added.
[2019-07-12] MEDS: NORepinephrine 8mg/ 250ml NS 250 ML IV SCH (14:42)
--- NOTE | 2019-07-12 19:35 | NUR ---
5 minutes into start of dialysis patient became bradycardic. Atropine given but became pulseless and CPR started. Code blue called. Bagged by RT. Epi given x 1 with ROSC achieved. Amiodarone 150mg IVP ordered by ER doctor to follow by percy. Vahe Aguilar NP contacted and on the way in. Levophed drip increased to 0.06mcg/kg/min. 2014 Vahe Aguilar NP aware of situation and made reconnaissance crewmember expeditionary fighting vehicle crewman Dr. Mack aware. Virgilio Alejandra RN charge nurse made Dr. Haas surgeon aware. Also contacted friend Celina Alonzo and brother Johnny Swanson and made then aware of previous events. They both then spoke with Vahe Aguilar NP and code status changed to DNR. 2029 Unresponsive to stimuli. All sedation turned off. 2299 Patient noted to be over breathing vent. Found patient grimacing. Not following commands but withdrawing from pain. Sedation restarted.
[2019-07-12 20:01] LABS: ABG BASE EXCESS -10.6 mmol/L (-2.0-3.0); ABG HCO3 17.5 mmol/L (22.0-26.0); ABG OXYGEN SATURATION 90.3 % (95-98); ABG PCO2 (T) 47.5 mmHg (35.0-45.0); ABG PH (T) 7.183 (7.350-7.450); ABG PO2 (T) 73.6 mmHg (83-108); FCOHb 0.3 % (0.5-1.5); FMetHb 0.2 % (0.3-1.12); FO2Hb 89.8 % (94-100); TOTAL HEMOGLOBIN 12.2 G/dl (12.0-16.0)
[2019-07-12 20:16] LABS: EOSINOPHILS # (AUTO) 0.4 X10'3 (0-0.9); HEMOGLOBIN 10.9 g/dl (12.0-16.0); MEAN PLATELET VOLUME 10.9 FL (7.4-10.4); PLATELET COUNT 156 X10'3 (140-440); RED BLOOD COUNT 3.76 X10'6 (4.20-5.60)
[2019-07-12 20:17] LABS: BASOPHILS # (AUTO) 0.1 X10'3 (0-0.2); BASOPHILS % (AUTO) 0.7 % (0-1); EOSINOPHILS % (AUTO) 2.9 % (0-6); HEMATOCRIT 34.4 % (35.0-45.0); LYMPHOCYTES # (AUTO) 1.5 X10'3 (1.1-4.8); LYMPHOCYTES % (AUTO) 11.5 % (21-51); MEAN CORPUSCULAR HGB CONC 31.7 g/dL (33.0-36.5); MEAN CORPUSCULAR VOLUME 91.5 FL (78-98); MONOCYTES # (AUTO) 0.9 X10'3 (0-0.9); NEUTROPHILS # (AUTO) 10.1 X10'3 (1.8-7.7); NEUTROPHILS % (AUTO) 77.9 % (42-75); RED CELL DISTRIBUTION WIDTH 19.4 % (11.5-14.5); WHITE BLOOD COUNT 12.9 X10'3 (4.5-11.0)
[2019-07-12 20:22] LABS: ALANINE AMINOTRANSFERASE 23 U/L (12-78); ALBUMIN 1.4 G/DL (3.4-5.0); ALBUMIN/GLOBULIN RATIO 0.3 (1.1-1.5); ALKALINE PHOSPHATASE 152 IU/L (46-116); ANION GAP 13 (8-16); ASPARTATE AMINO TRANSFERASE 39 U/L (10-37); BILIRUBIN,TOTAL 0.4 MG/DL (0.1-1.0); BLOOD UREA NITROGEN 53 MG/DL (7-18); BUN/CREATININE RATIO 7.8 (6.6-38.0); CALCIUM 9.4 MG/DL (8.5-10.1); CHLORIDE 98 MMOL/L (99-107); CREATININE 6.76 MG/DL (0.40-0.90); GLUCOSE 174 MG/DL (70-104); MAGNESIUM 2.8 MG/DL (1.5-2.4); PHOSPHORUS 3.8 MG/DL (2.3-4.5); POTASSIUM 5.5 MMOL/L (3.5-5.1); SODIUM 134 MMOL/L (135-145); TOTAL CARBON DIOXIDE 22.7 MMOL/L (24-32); TOTAL PROTEIN 5.9 G/DL (6.4-8.2); eGFR 6 ML/MIN
[2019-07-12] MEDS: amiodarone/D5 360MG/200ML BAG 200 ML IV SCH ×2 (20:30→22:54)
[2019-07-12 20:35] LABS: PARTIAL THROMBOPLASTIN TIME 123 SECONDS (22-32)
[2019-07-12 20:56] LABS: NUCLEATED RED BLOOD CELLS 2 /100WBC (0-0); TOTAL CELLS COUNTED 100
[2019-07-12 20:57] LABS: ANISOCYTOSIS 2+; LARGE PLATELETS MANY; PLATELET ESTIMATE NORMAL
[2019-07-12] MEDS ORDERED: sodium bicarbonate (8.4%) inj. 1 MEQ/ML ML IV ONE (21:00)
[2019-07-12] MEDS: insulin glargine (Lantus) pen - multi-dose SQ SCH (21:00)
[2019-07-12] MEDS: atorvastatin 10mg tablet NG SCH (21:00)
[2019-07-12] MEDS: venlafaxine 37.5mg tablet NG SCH (22:18)
[2019-07-12 22:56] LABS: ABG HCO3 21.9 mmol/L (22.0-26.0); ABG OXYGEN SATURATION 99.1 % (95-98); ABG PCO2 (T) 39.1 mmHg (35.0-45.0); ABG PH (T) 7.368 (7.350-7.450); ABG PO2 (T) 173.4 mmHg (83-108); ALLEN'S TEST POSITIVE; FCOHb 0.3 % (0.5-1.5); FMetHb 0.2 % (0.3-1.12); FO2Hb 98.6 % (94-100); PATIENT TEMPERATURE 37.1; PEEP 10 cm H2O; RESPIRATORY RATE 16 b/min; TIDAL VOLUME 500 mL; TOTAL HEMOGLOBIN 11.2 G/dl (12.0-16.0)
[2019-07-13] VITALS (15 sets, daily range): BP systolic 90–135; BP diastolic 48–78
[2019-07-13] MEDS: diltiazem 30mg tablet PO SCH ×3 (00:08→14:00)
[2019-07-13] MEDS: ipratropium/albuterol 3ml nebule NEB SCH ×3 (02:38→12:02)
[2019-07-13] MEDS: VANCOMYCIN LEVEL IV SCH (03:00)
[2019-07-13 03:01] LABS: ABG BASE EXCESS -3.1 mmol/L (-2.0-3.0); ABG HCO3 21.6 mmol/L (22.0-26.0); ABG OXYGEN SATURATION 94.7 % (95-98); ABG PCO2 (T) 37.7 mmHg (35.0-45.0); ABG PH (T) 7.377 (7.350-7.450); ABG PO2 (T) 77.1 mmHg (83-108); ALLEN'S TEST POSITIVE; FCOHb 0.3 % (0.5-1.5); FMetHb 0.1 % (0.3-1.12); FO2Hb 94.3 % (94-100); PATIENT TEMPERATURE 37.2; PEEP 5 cm H2O; RESPIRATORY RATE 16 b/min; TIDAL VOLUME 500 mL; TOTAL HEMOGLOBIN 10.9 G/dl (12.0-16.0)
[2019-07-13] MEDS: midazolam 100mg in NS 100ml 100 ML IV PRN (03:02)
[2019-07-13] MEDS: amiodarone/D5 360MG/200ML BAG 200 ML IV SCH ×2 (03:02→08:38)
[2019-07-13] MEDS: mineral oil/petrolatum ophthal oint EACHEYE SCH ×3 (03:03→14:00)
[2019-07-13] MEDS: NORepinephrine 8mg/ 250ml NS 250 ML IV SCH (03:05)
[2019-07-13 03:59] LABS: BASOPHILS # (AUTO) 0.1 X10'3 (0-0.2); BASOPHILS % (AUTO) 0.5 % (0-1); EOSINOPHILS # (AUTO) 0.4 X10'3 (0-0.9); EOSINOPHILS % (AUTO) 2.5 % (0-6); HEMATOCRIT 30.1 % (35.0-45.0); HEMOGLOBIN 9.7 g/dl (12.0-16.0); LYMPHOCYTES # (AUTO) 0.3 X10'3 (1.1-4.8); LYMPHOCYTES % (AUTO) 2.4 % (21-51); MEAN CORPUSCULAR HEMOGLOBIN 29.1 PG (27.0-31.0); MEAN CORPUSCULAR HGB CONC 32.3 g/dL (33.0-36.5); MEAN PLATELET VOLUME 10.6 FL (7.4-10.4); MONOCYTES # (AUTO) 1.4 X10'3 (0-0.9); MONOCYTES % (AUTO) 9.4 % (2-12); NEUTROPHILS # (AUTO) 12.4 X10'3 (1.8-7.7); NEUTROPHILS % (AUTO) 85.2 % (42-75); PLATELET COUNT 138 X10'3 (140-440); RED BLOOD COUNT 3.34 X10'6 (4.20-5.60); WHITE BLOOD COUNT 14.6 X10'3 (4.5-11.0)
[2019-07-13 04:10] LABS: ALANINE AMINOTRANSFERASE 25 U/L (12-78); ALBUMIN 1.3 G/DL (3.4-5.0); ALBUMIN/GLOBULIN RATIO 0.3 (1.1-1.5); ALKALINE PHOSPHATASE 138 IU/L (46-116); ANION GAP 12 (8-16); ASPARTATE AMINO TRANSFERASE 30 U/L (10-37); BILIRUBIN,TOTAL 0.3 MG/DL (0.1-1.0); BLOOD UREA NITROGEN 61 MG/DL (7-18); BUN/CREATININE RATIO 8.9 (6.6-38.0); CALCIUM 8.9 MG/DL (8.5-10.1); CHLORIDE 98 MMOL/L (99-107); CREATININE 6.89 MG/DL (0.40-0.90); GLUCOSE 143 MG/DL (70-104); MAGNESIUM 2.7 MG/DL (1.5-2.4); SODIUM 133 MMOL/L (135-145); TOTAL CARBON DIOXIDE 23.2 MMOL/L (24-32); TOTAL PROTEIN 5.4 G/DL (6.4-8.2); eGFR 6 ML/MIN
[2019-07-13 04:11] LABS: POTASSIUM 5.6 MMOL/L (3.5-5.1)
[2019-07-13] MEDS: enoxaparin 100mg/ml syringe SUBCUT SCH (08:00)
[2019-07-13] MEDS: famotidine 20mg tablet NG SCH (08:53)
[2019-07-13] MEDS: piperacillin/tazo 3.375gm/50ml 50 ML IV SCH (08:54)
[2019-07-13] MEDS: psyllium seed 3.4 gm packet NG SCH (08:54)
[2019-07-13] MEDS: venlafaxine 37.5mg tablet NG SCH (08:54)
[2019-07-13] MEDS: lactobacillus rhamnosus 10,000 MMU CELLS/CAPSULE NG SCH (08:54)
[2019-07-13] MEDS: NYSTATIN CREAM - 30GM TUBE TP SCH (08:55)
[2019-07-13] MEDS: mineral oil/petrolatum, white cream 113gm jar TP SCH (08:56)
--- NOTE | 2019-07-13 10:26 | NUR ---
Call from Celina, friend, she indicated that family wanted her to become a Comfort care pt, and have life support removed. I let social work program coordinator know, and they have called friend and family and verified that that is families wishes. MD bean
[2019-07-13] MEDS ORDERED: morphine 4 MG/ML inj SYRINge IV PRN (11:55)
[2019-07-13] MEDS ORDERED: LORazepam 2 mg/ml vial IV PRN (11:55)
--- NOTE | 2019-07-13 14:00 | NUR ---
Pt extubated, Comfort care initiated.
--- NOTE | 2019-07-13 14:30 | NUR ---
RN IS TO DOCUMENT YES TO ALL APPLICABLE AREAS Pronouncement of : Yes, 1429 1. Time Physician Notified: 1444 2. Date of : [id number] 3. Time of : 1429 4. DNR/Withdraw life support documented: Yes 5. Monitor strip has been placed on chart: Yes 6. Assessment process is of one-minute duration and includes following criteria: a) Patient is unresponsive to all stimuli: Yes b) Pupils fixed and non-reactive: Yes c) Auscultation of precordium reveals absence of heart tones: Yes d) Auscultation of lungs reveals absence of breath sounds: Yes e) Absence of blood pressure / all vital signs: Yes f) QRS complexes are not present on monitor / EKG strip: Yes g) Pacer spikes without capture:NA 4. Comments:
--- NOTE | 2019-07-13 15:34 | NUR ---
Notified family and [facility] home of pt expiration. Called Donor network, and they were not going to be able to harvest any organs due to potential sepsis
--- NOTE | 2019-07-13 17:00 | NUR ---
Pt picked up by home. All known property went with home
== END 2019-07-13 16:59 | disposition expired | DRG 335 ==
LOC: ER 01:45 → ED HOLD 05:24 → PACU 10:07 → CICU 2S 14:36
PROVIDERS: ADMIT Internal Medicine; ATTEND Internal Medicine
PROC: 0WQF0ZZ Repair Abdominal Wall, Open Approach (ICD-10-PCS; 2019-06-27)
PROC: 0D9670Z Drainage of Stomach with Drainage Device, Via Natural or Artificial Opening (ICD-10-PCS; 2019-06-27)
PROC: 5A1955Z Respiratory Ventilation, Greater than 96 Consecutive Hours (ICD-10-PCS; 2019-06-27)
PROC: 0DN80ZZ Release Small Intestine, Open Approach (ICD-10-PCS; principal; 2019-06-27 11:22)
PROC: 0JN Subcutaneous Tissue and Fascia, Release (ICD-10-PCS; 2019-06-29)
PROC: 02HV33Z Insertion of Infusion Device into Superior Vena Cava, Percutaneous Approach (ICD-10-PCS; 2019-07-02)
PROC: B548ZZA Ultrasonography of Superior Vena Cava, Guidance (ICD-10-PCS; 2019-07-02)
PROC: 5A1D70Z Performance of Urinary Filtration, Intermittent, Less than 6 Hours Per Day (ICD-10-PCS; 2019-07-02)
PROC: 5A1D70Z Performance of Urinary Filtration, Intermittent, Less than 6 Hours Per Day (ICD-10-PCS; 2019-07-03)
PROC: 5A1D70Z Performance of Urinary Filtration, Intermittent, Less than 6 Hours Per Day (ICD-10-PCS; 2019-07-04)
PROC: 5A09357 Assistance with Respiratory Ventilation, Less than 24 Consecutive Hours, Continuous Positive Airway Pressure (ICD-10-PCS; 2019-07-05)
PROC: 5A1D70Z Performance of Urinary Filtration, Intermittent, Less than 6 Hours Per Day (ICD-10-PCS; 2019-07-05)
PROC: 5A1D70Z Performance of Urinary Filtration, Intermittent, Less than 6 Hours Per Day (ICD-10-PCS; 2019-07-07)
PROC: 5A1D70Z Performance of Urinary Filtration, Intermittent, Less than 6 Hours Per Day (ICD-10-PCS; 2019-07-08)
PROC: 5A12012 Performance of Cardiac Output, Single, Manual (ICD-10-PCS; 2019-07-10)
PROC: 0BH17EZ Insertion of Endotracheal Airway into Trachea, Via Natural or Artificial Opening (ICD-10-PCS; 2019-07-10)
PROC: 5A1955Z Respiratory Ventilation, Greater than 96 Consecutive Hours (ICD-10-PCS; 2019-07-10)
PROC: 5A1D70Z Performance of Urinary Filtration, Intermittent, Less than 6 Hours Per Day (ICD-10-PCS; 2019-07-11)
PROC: 5A1D70Z Performance of Urinary Filtration, Intermittent, Less than 6 Hours Per Day (ICD-10-PCS; 2019-07-12)
PROC: 5A12012 Performance of Cardiac Output, Single, Manual (ICD-10-PCS; 2019-07-12)
DX: K43.6 Other and unspecified ventral hernia with obstruction, without gangrene (principal); J96.90 Respiratory failure, unspecified, unspecified whether with hypoxia or hypercapnia; J18.9 Pneumonia, unspecified organism; J44.0 Chronic obstructive pulmonary disease with (acute) lower respiratory infection; N17.9 Acute kidney failure, unspecified; T79.A3XA Traumatic compartment syndrome of abdomen, initial encounter; I47.2 Ventricular tachycardia; J44.9 Chronic obstructive pulmonary disease, unspecified; I12.9 Hypertensive chronic kidney disease with stage 1 through stage 4 chronic kidney disease, or unspecified chronic kidney disease; I48.0 Paroxysmal atrial fibrillation; E66.01 Morbid (severe) obesity due to excess calories; E78.00 Pure hypercholesterolemia, unspecified; X58.XXXA Exposure to other specified factors, initial encounter; E78.5 Hyperlipidemia, unspecified; N18.3 Chronic kidney disease, stage 3 (moderate); F32.9 Major depressive disorder, single episode, unspecified; M19.90 Unspecified osteoarthritis, unspecified site; Z66 Do not resuscitate; Z86.19 Personal history of other infectious and parasitic diseases; Z87.891 Personal history of nicotine dependence; Z98.84 Bariatric surgery status; Z79.899 Other long term (current) drug therapy
CPT/HCPCS: 36573; 92950; 93306; 96360; 96361; 99285; Z7506; Z7508; 36415; 36600; 71045; 76937; 80048; 80053; 80069; 80202; 81001; 82570; 82803; 82948; 83036; 83605; 83690; 83735; 83880; 84100; 84105; 84134; 84145; 84484; 85018; 85025; 85610; 85730; 86885; 86900; 86901; 87040; 87070; 87081; 87340; 90935; 92508; 92616; 93005; 94002; 94003; 94640; 94760; 97110; 97161; 97530; 97535; A4618; A6449; A7000; C1758; G0257; G0378; J0171; J0690; J0694; J1644; J1650; J1815; J1940; J2001; J2150; J2212; J2250; J2270; J2543; J3010; J3370; J3475; J3480; J3490; J7030; J7040; J7050; J7060; J7120; P9045; P9047; Q4081